=== PATIENT | female | born 1945 | race Caucasian/White ===

== ENCOUNTER 2017-07-17 09:27 | Outpatient (CLI) | payer MEDICARE ==
--- NOTE | 2017-07-20 17:59 | DEXA Report ---
DEXA SCAN: 07/17/2017 COMPARISON: No comparison. INDICATION: Bone mineral density screening. TECHNIQUE: Dual energy x-ray absorptiometry (DXA) was performed on a [employer] system. Regions measured are the AP spine, femoral neck, and, if needed, forearm. COMPARISON: None. In accordance with the International Society for Clinical Densitometry (ISCD) guidelines, data from previous exams may be reanalyzed using current recommendations and techniques. This is done to allow a more accurate basis for comparison with the current study. FINDINGS The data for the lumbar spine is as follows: REGION BMD (g/cm/cm) T-SCORE Z-SCORE L1 1.070 -0.5 0.9 L2 1.151 -0.4 1.0 L3 1.056 -1.2 0.2 L4 0.925 -2.3 -0.8 L1-L4 1.041 -1.2 0.3 NOTE: All evaluable vertebrae are used for classification. The data for the hip is as follows: REGION BMD (g/cm/cm) T-SCORE Z-SCORE Neck 0.891 -1.1 0.5 TOTAL 0.888 -1.0 0.4 NOTE: The femoral neck or total proximal femur, whichever is lowest, is used for classification. Bone mineral density of the spine L1-L4 is 1.041 grams/cm2. T-score minus 1.2. Z-score 0.3. WHO classification osteopenia. Bone mineral density of the femoral neck is 0.891 grams/cm2. T-score minus 1.1. Z-scores 0.5. WHO classification osteopenia. IMPRESSION WHO CLASSIFICATION BASED ON THE INTERNATIONAL REFERENCE STANDARD IS OSTEOPENIA. FRACTURE RISK IS INCREASED. RECOMMENDATION: Patients with diagnosis of osteoporosis or osteopenia should have regular bone mineral density assessment. For those eligible for Medicare, routine testing is allowed once every 2 years. Testing frequency can be increased for patients who have rapidly progressing disease or for those who are receiving medical therapy to restore bone mass. COMMENT World Health Organization (WHO) definitions for osteoporosis and osteopenia: NORMAL BMD: T-score at 1.0 or higher, fracture risk is low. OSTEOPENIA BMD: T-score between 1.0 and -2.5, fracture risk is increased. OSTEOPOROSIS BMD: T-score at 2.5 or lower, fracture risk high. National Osteoporosis Foundation recommends: 1. Obtain adequate dietary calcium (at least 1200 mg per day) and vitamin D (400 -800 international units per day). 2. Participate, as appropriate, in regular weightbearing and muscle- strengthening exercise. 3. Avoid tobacco use and reduce alcohol and caffeine intake. 4. For more detailed information see the website at www.NOF.org. TD: 07/17/2017 10:57 MTDJesenia
== END 2017-07-17 09:28 | disposition home or self-care (01) ==
LOC: DI 09:27
PROVIDERS: ATTEND Nurse Practitioner
DX: Z13.820 Encounter for screening for osteoporosis (principal); M85.80 Other specified disorders of bone density and structure, unspecified site; M81.0 Age-related osteoporosis without current pathological fracture
CPT/HCPCS: 77080

== ENCOUNTER 2017-07-18 09:35 | Outpatient (CLI) | payer MEDICARE ==
--- NOTE | 2017-07-18 13:14 | XRAY Report ---
LUMBAR SPINE: 07/18/2017 COMPARISON: No comparison. INDICATION: Lumbago. TECHNIQUE: Three views. FINDINGS: There is mild disk space narrowing at L1-L2, L2-L3, L3-L4, and L4- L5. There are small anterior osteophytes. Alignment appears normal. No evidence of acute fracture. IMPRESSION: MILD LUMBAR SPONDYLOSIS, DETAILED ABOVE. TD: 07/18/2017 13:13 [facility]
== END 2017-07-18 09:36 | disposition home or self-care (01) ==
LOC: DI.N 09:35
PROVIDERS: ATTEND Nurse Practitioner
DX: M54.5 Low back pain (principal)
CPT/HCPCS: 72100

== ENCOUNTER 2017-07-21 08:00 | Outpatient (CLI) | payer MEDICARE ==
[2017-07-21 13:06] LABS: BASOPHILS # (AUTO) 0.1 10^3/uL (0.0-0.1); BASOPHILS % (AUTO) 1.2 %; EOSINOPHILS # (AUTO) 0.3 10^3/uL (0.0-0.7); EOSINOPHILS % (AUTO) 5.9 %; HGB - HEMOGLOBIN 13.8 g/dL (12.0-16.0); LYMPHOCYTES # (AUTO) 1.9 10^3/uL (1.5-3.5); LYMPHOCYTES % (AUTO) 33.8 %; MEAN CORPUSCULAR HEMOGLOBIN 31.2 pg (27.0-31.0); MEAN CORPUSCULAR HGB CONC 33.9 g/dL (32.0-36.0); MEAN PLATELET VOLUME 8.9 fL (7.9-10.8); MONOCYTES # (AUTO) 0.5 10^3/uL (0.0-1.0); MONOCYTES % (AUTO) 9.5 %; NEUTROPHILS # (AUTO) 2.8 10^3/uL (1.5-6.6); NEUTROPHILS % (AUTO) 49.6 %; PLT - PLATELET COUNT 273 10^3/uL (130-450); RED BLOOD COUNT 4.44 10^6/uL (4.20-5.40); WHITE BLOOD COUNT 5.6 x10^3/uL (4.8-10.8)
[2017-07-21 13:22] LABS: ALBUMIN 3.9 g/dL (3.2-5.5); ALBUMIN/GLOBULIN RATIO 1.3 (1.0-2.2); ALKALINE PHOSPHATASE 79 IU/L (42-121); ALT ALANINE AMINOTRANSFERASE 15 IU/L (10-60); AST ASPARTATE AMINOTRANSFERASE 16 IU/L (10-42); BILIRUBIN,TOTAL 1.3 mg/dL (0.2-1.0); BUN - BLOOD UREA NITROGEN 16 mg/dL (6-20); CALCIUM 9.5 mg/dL (8.5-10.3); CARBON DIOXIDE - CO2 26 mmol/L (21-32); CHLORIDE 104 mmol/L (101-111); CHOL/HDL RATIO 4.4 (<4.4); CHOLESTEROL 262 mg/dL; CREATININE 0.5 mg/dL (0.4-1.0); GFR - MDRD 122 (>89); GLUCOSE 94 mg/dL (70-100); HDL CHOLESTEROL 60 mg/dL; LDL CHOLESTEROL,CALCULATED 189 mg/dL; LDL/HDL RATIO 3.2 (<4.4); SODIUM 137 mmol/L (135-145); TOTAL PROTEIN 6.8 g/dL (6.7-8.2); VLDL CHOLESTEROL 13 mg/dL
[2017-07-21 13:26] LABS: THYROID STIMULATING HORMONE 1.38 uIU/mL (0.34-5.60)
== END 2017-07-21 08:01 | disposition home or self-care (01) ==
LOC: LAB.N 08:00
PROVIDERS: ATTEND Nurse Practitioner
DX: I10 Essential (primary) hypertension (principal); K76.9 Liver disease, unspecified; E27.8 Other specified disorders of adrenal gland; E78.2 Mixed hyperlipidemia; E55.9 Vitamin D deficiency, unspecified
CPT/HCPCS: 36415; 80053; 80061; 82306; 82607; 82746; 83721; 84443; 85025

== ENCOUNTER 2018-08-13 07:56 | Outpatient (CLI) | payer MEDICARE ==
[2018-08-13] MEDS ORDERED: IOVERSOL 320 100 ML VIAL IVP ONE ×2 (08:07→17:07)
--- NOTE | 2018-08-13 12:45 | CT Report ---
Reason: ADRENAL MASS Procedure Date: 08/13/2018 Accession Number: [id number] / [id number] Procedure: CT - ABDOMEN W/WO CPT Code: FULL RESULT: EXAM: CT ABDOMEN WITHOUT AND WITH CONTRAST EXAM DATE: 08/13/2018 08:26 AM. HISTORY: Adrenal mass. COMPARISON: ABDOMEN/PELVIS W/ 09/11/2017 3:40 PM. TECHNIQUE: Routine helical CT imaging was performed through the abdomen before and after administration of IV contrast: 100 mL Optiray 320. Enteric contrast: No. Reconstruction: Coronal and sagittal. In accordance with CT protocol optimization, one or more of the following dose reduction techniques were utilized for this exam: automated exposure control, adjustment of mA and/or KV based on patient size, or use of iterative reconstructive technique. FINDINGS: Lung Bases: Dependent changes. Liver: Liver contains a right lobe hypodensity which is too small to characterize. Gallbladder/Bile Ducts: Status post cholecystectomy. Spleen: Normal. Pancreas: Normal. No masses or ductal obstruction. Adrenal Glands: The known left adrenal myelolipoma measures 4.1 x 3.6 cm on today's exam as seen on image 38 series 5. Right adrenal gland is diminutive in size, stable. Kidneys: Normal. No masses or hydronephrosis. Peritoneal Cavity/Bowel: Normal. No free fluid, free air or adenopathy. No masses or acute inflammatory process. Vasculature: No aneurysms or other significant abnormality. Bones: No significant abnormality. Other: None. IMPRESSION: Left adrenal myelolipoma requires no further imaging follow-up as per ACR white paper. RADIA
== END 2018-08-13 07:57 | disposition home or self-care (01) ==
LOC: DI 07:56
PROVIDERS: ATTEND Nurse Practitioner
DX: D17.79 Benign lipomatous neoplasm of other sites (principal)
CPT/HCPCS: 74170; Q9967

== ENCOUNTER 2018-10-29 07:28 | Outpatient (CLI) | payer MEDICARE ==
[2018-10-29 13:40] LABS: BASOPHILS # (AUTO) 0.1 10^3/uL (0.0-0.1); EOSINOPHILS # (AUTO) 0.4 10^3/uL (0.0-0.7); EOSINOPHILS % (AUTO) 6.7 %; HGB - HEMOGLOBIN 14.3 g/dL (12.0-16.0); LYMPHOCYTES % (AUTO) 34.8 %; MEAN CORPUSCULAR HEMOGLOBIN 30.5 pg (27.0-31.0); MEAN CORPUSCULAR HGB CONC 31.8 g/dL (32.0-36.0); MEAN CORPUSCULAR VOLUME 95.7 fL (81.0-99.0); MEAN PLATELET VOLUME 10.8 fL (7.9-10.8); MONOCYTES # (AUTO) 0.5 10^3/uL (0.0-1.0); MONOCYTES % (AUTO) 9.2 %; NEUTROPHILS # (AUTO) 2.8 10^3/uL (1.5-6.6); NEUTROPHILS % (AUTO) 48.1 %; PLT - PLATELET COUNT 299 10^3/uL (130-450); RED BLOOD COUNT 4.69 10^6/uL (4.20-5.40); RED CELL DISTRIBUTION WIDTH 12.8 % (12.0-15.0); WHITE BLOOD COUNT 5.9 x10^3/uL (4.8-10.8)
[2018-10-29 14:08] LABS: ALBUMIN 3.8 g/dL (3.2-5.5); ALBUMIN/GLOBULIN RATIO 1.4 (1.0-2.2); ALKALINE PHOSPHATASE 71 IU/L (42-121); ALT ALANINE AMINOTRANSFERASE 15 IU/L (10-60); AST ASPARTATE AMINOTRANSFERASE 15 IU/L (10-42); BUN - BLOOD UREA NITROGEN 13 mg/dL (6-20); CALCIUM 9.4 mg/dL (8.5-10.3); CARBON DIOXIDE - CO2 27 mmol/L (21-32); CHLORIDE 105 mmol/L (101-111); CHOL/HDL RATIO 4.3 (<4.4); CHOLESTEROL 256 mg/dL; CREATININE 0.6 mg/dL (0.4-1.0); GFR - MDRD 98 (>89); GLUCOSE 94 mg/dL (70-100); HDL CHOLESTEROL 59 mg/dL; LDL CHOLESTEROL,CALCULATED 177 mg/dL; SODIUM 142 mmol/L (135-145); TOTAL PROTEIN 6.5 g/dL (6.7-8.2); VLDL CHOLESTEROL 20 mg/dL
== END 2018-10-29 23:59 ==
LOC: LAB.N 07:28
PROVIDERS: ATTEND Nurse Practitioner
DX: I10 Essential (primary) hypertension (principal); E78.2 Mixed hyperlipidemia; E27.8 Other specified disorders of adrenal gland; M85.89 Other specified disorders of bone density and structure, multiple sites; M19.90 Unspecified osteoarthritis, unspecified site
CPT/HCPCS: 36415; 80053; 80061; 83721; 84443; 85025

== ENCOUNTER 2019-07-08 09:38 | Outpatient (CLI) | payer MEDICARE ==
[2019-07-08] MEDS ORDERED: IOVERSOL 320 50 ML VIAL ONE (10:06)
[2019-07-08] MEDS ORDERED: IOVERSOL 320 100 ML VIAL IVP ONE ×2 (10:06→14:34)
[2019-07-08] MEDS ORDERED: IOVERSOL 320 50 ML VIAL PO ONE (14:34)
--- NOTE | 2019-07-09 13:25 | CT Report ---
Reason: ADRENAL MASS Procedure Date: 07/08/2019 Accession Number: [id number] / [id number] Procedure: CT - CHEST W CPT Code: Final Report FULL RESULT: EXAM: CT CHEST EXAM DATE: 07/08/2019 11:23 AM. CLINICAL HISTORY: Adrenal mass. COMPARISONS: ABDOMEN W/WO 08/13/2018 8:15 AM ABDOMEN/PELVIS W/ 09/11/2017 3:40 PM. TECHNIQUE: Routine helical CT imaging was performed through the chest. IV contrast: 100 mL Optiray 320. Reconstructions: Coronal and sagittal. In accordance with CT protocol optimization, one or more of the following dose reduction techniques were utilized for this exam: automated exposure control, adjustment of mA and/or KV based on patient size, or use of iterative reconstructive technique. FINDINGS: Lungs/Pleura: 1.3 x 1.3 cm solid medial left upper lobe lung nodule, series 3 image 95. No calcifications or macroscopic fat. 5 mm posterior medial left lower lobe lung nodule on image 176. Mild bilateral lower lobe bronchiectasis. Dependent bilateral lower lobe atelectasis. Mild right middle lobe and right lower lobe diskoid atelectasis and potential scarring. Similar findings in left lower lobe near the diaphragm. Mediastinum: Mild coronary arterial calcification.. No adenopathy or masses. Mild cardiomegaly. Bones: Thoracic spine degenerative changes. Visualized Abdomen: Fat-containing left adrenal lesion consistent with a benign myelolipoma measuring 3.8 x 3.8 cm previously measured 3.9 x 4.[address] 09/11/2017. No significant change. Normal right adrenal gland. Prior cholecystectomy. Posterior splenule. Small hiatal hernia. Other: None. IMPRESSION: 1. Stable benign left adrenal myelolipoma. 2. A 1.3 cm solid medial left upper lobe lung nodule. Consider follow-up chest CT in 3 months versus PET-CT or tissue sampling to further characterize. 3. A 5 mm posterior medial left lower lobe lung nodule is also noted. Demetrius Morales et al. Guidelines for Management of Incidental Pulmonary Nodules Detected on CT Images: From the Fleischner Society 2017. Radiology (2017). RADIA The call report notification system was initiated by Dr. Macario Blair at 12:45 PM on 07/09/2019. The above call report findings were discussed with Nurse Cha by Dr. Macario Blair at 01:23 PM on 07/09/2019.
--- NOTE | 2019-07-09 13:56 | CT Report ---
Reason: ADRENAL MASS Procedure Date: 07/08/2019 Accession Number: [id number] / [id number] Procedure: CT - Abdomen/Pelvis W CPT Code: Final Report FULL RESULT: EXAM: CT ABDOMEN AND PELVIS EXAM DATE: 07/08/2019 11:23 AM. CLINICAL HISTORY: Adrenal mass. COMPARISONS: ABDOMEN/PELVIS W/ 09/11/2017 3:40 PM. TECHNIQUE: Routine helical CT imaging was performed through the abdomen and pelvis. IV contrast: 100 mL Optiray 320. Enteric contrast: Yes. Reconstructions: Coronal and sagittal. In accordance with CT protocol optimization, one or more of the following dose reduction techniques were utilized for this exam: automated exposure control, adjustment of mA and/or KV based on patient size, or use of iterative reconstructive technique. FINDINGS: Lung Bases: Small hiatal hernia. Liver: Several small liver cysts appear similar to 09/11/2017 CT. No suspicious mass. Patent portal vein. Gallbladder/Bile Ducts: Prior cholecystectomy. Spleen: Normal. Pancreas: Normal. Adrenal Glands: 3.9 x 3.7 cm left adrenal myelolipoma with microscopic fat, stable compared to abdominal CT 09/11/2017. Normal right adrenal gland. Kidneys: Normal. No masses or hydronephrosis. Peritoneal Cavity/Bowel: Colonic diverticulosis. No acute inflammation. No dilated bowel. Pelvic Organs: Normal. The bladder and visualized pelvic organs are within normal limits. Vasculature: Moderate atherosclerotic calcifications. No abdominal aortic aneurysm. Bones: Multilevel lumbar spine degenerative changes. Mild scoliosis. Other: None. IMPRESSION: 1. Stable 3.9 cm benign left adrenal myelolipoma. 2. Diverticulosis. No diverticulitis. RADIA
== END 2019-07-08 09:39 | disposition home or self-care (01) ==
LOC: MAC.MOP 09:38
PROVIDERS: ATTEND Internal Medicine
DX: D17.79 Benign lipomatous neoplasm of other sites (principal); R91.8 Other nonspecific abnormal finding of lung field; K57.30 Diverticulosis of large intestine without perforation or abscess without bleeding
CPT/HCPCS: 71260; 74177; Q9967

== ENCOUNTER 2019-09-01 10:36 | Outpatient (CLI) | payer MEDICARE ==
[2019-09-01] MEDS ORDERED: IOVERSOL 320 100 ML VIAL IVP ONE (11:46)
== END 2019-09-01 10:37 | disposition home or self-care (01) ==
LOC: DI 10:36
PROVIDERS: ATTEND Internal Medicine
DX: Z53.9 Procedure and treatment not carried out, unspecified reason (principal)

== ENCOUNTER 2019-09-03 15:25 | Outpatient (CLI) | payer MEDICARE | END 2019-09-03 15:26 | disposition home or self-care (01) | LOC: DI 15:25 | PROVIDERS: ATTEND Nurse Practitioner | DX: Z12.31 Encounter for screening mammogram for malignant neoplasm of breast (principal) | CPT/HCPCS: 77063; 77067 ==

== ENCOUNTER 2019-09-20 12:52 | Outpatient (CLI) | payer MEDICARE ==
[2019-09-20] MEDS ORDERED: IOVERSOL 320 100 ML VIAL IVP ONE ×2 (13:00→13:15)
--- NOTE | 2019-09-20 17:45 | CT Report ---
PROCEDURE: CHEST W INDICATIONS: ABN FINDINGS ON LUNG, ADRENAL GLAND CONTRAST: IV CONTRAST: Optiray 320 ml: 100 PO CONTRAST: *NO PO CONTRAST TECHNIQUE: After the administration of intravenous contrast, 5 mm thick sections acquired from the pulmonary api so to the posterior costophrenic angles. 7 mm thick coronal MIP reformats were acquired. For radia tion dose reduction, the following was used: automated exposure control, adjustment of mA and/or kV according to patient size. COMPARISON: CT chest 07/08/2019, CT abdomen pelvis 07/08/2019, CT abdomen 08/13/2018. FINDINGS: Image quality: Excellent. Lungs and pleura: Medially within the left upper lobe, there is an oval circumscribed nodule measuri ng up to 1.3 cm which appears stable in size compared to the recent prior chest CT. Medially within t he left lower lobe, a small pulmonary nodule measuring up to 0.5 cmThere which appears progressively increased in size compared to the prior abdominal CT of 09/11/2017 on which it measured approximately 0 .2 cm. There is mild focal thickening along the right minor fissure which appears similar to the prio r chest CT. Linear scarring is redemonstrated within the lung bases bilaterally. Bilateral atelectasi s is also noted. No new suspicious mass lesions. No acute consolidation. No pleural effusions or pneu mothorax. Central and peripheral airways are patent and normal in caliber. Mediastinum: Heart size is normal. No pericardial effusion. No mediastinal or hilar adenopathy by size criteria. Thoracic aorta and central pulmonary arteries are normal in size. Esophagus is favian l in caliber. There is a small to moderate hiatal hernia. Bones and chest wall: No suspicious bony lesions. No vertebral body compression fractures. No axil erik or supraclavicular adenopathy by size criteria. There is a calcified nodule within the left thyr oid lobe redemonstrated, measuring up to 0.6 cm. Abdomen: Visualized upper abdomen redemonstrates a heterogeneous left adrenal mass measuring up to 3 .6 x 3.6 cm in transverse dimension with internal macroscopic fat. The findings are consistent with a myelolipoma and appears stable in size compared to the prior studies. The gallbladder is surgically absent. IMPRESSION: 1. Stable medial left upper lobe pulmonary nodule measuring up to 1.3 cm. Recommend continued follow- up in 6 months to demonstrate stability. 2. Small 0.5 cm medial left lower lobe nodule demonstrates progressive increase in size compared to t he prior studies. The finding is nonspecific but suspicious for a neoplasm. Recommend attention on fo llow-up in 6 months. 3. Small calcified left thyroid nodule. Further evaluation may be obtained with ultrasound if indicat ed. 4. Stable left adrenal myelolipoma. Reviewed by: Kartik Bentley MD on 09/20/2019 5:43 PM PDT Approved by: Kartik Bentley MD on 09/20/2019 5:43 PM PDT Station ID: [id number]
== END 2019-09-20 12:53 | disposition home or self-care (01) ==
LOC: DI 12:52
PROVIDERS: ATTEND Internal Medicine Hematology & Oncology
DX: R91.8 Other nonspecific abnormal finding of lung field (principal); E27.8 Other specified disorders of adrenal gland; D17.5 Benign lipomatous neoplasm of intra-abdominal organs; E04.1 Nontoxic single thyroid nodule
CPT/HCPCS: 71260; Q9967

== ENCOUNTER 2019-10-05 08:42 | Outpatient (CLI) | payer MEDICARE ==
--- NOTE | 2019-10-06 11:33 | Mammography Report ---
UNILATERAL RIGHT DIGITAL DIAGNOSTIC MAMMOGRAM 3D/2D: 10/05/2019 CLINICAL: Patient returns today to evaluate a focal asymmetry in the right breast. Comparison is made to exams dated: 09/03/2019 mammogram - [facility], 07/26/2017 [facility], 02/13/2015 mammogram, 12/16/2013 mammogram, 12/11/2012 mammogram - [facility], and 0 mammogram - [facility]. There are scattered fibroglandular elements in right joseph ast. There is a 1 cm mass with a spiculated margin and dystrophic calcifications in the right breast at 11 o'clock anterior depth. This is seen in additional views. No other significant masses or calcifications are seen in the breast. IMPRESSION: INCOMPLETE: NEEDS ADDITIONAL IMAGING EVALUATION The 1 cm mass in the right breast is indeterminate. An ultrasound is recommended. This was performe d immediately following this exam. This exam was interpreted at Station ID: [id number]. NOTE: For mammograms, a report in lay terms will be sent to the patient. Approximately 15% of breast malignancies will not be visualized mammographically. In the management of a palpable breast mass, a negative mammogram must not discourage biopsy of a clinically suspicious lesion. Electronically Signed By: Mirta armendariz/:10/05/2019 09:26:54 ACR BI-RADS Category 0: Incomplete 3340F PARENCHYMAL PATTERN: (A) - The breast(s) demonstrate(s) scattered fibroglandular densities. BI-RADS CATEGORY: (0) - 0 Ultrasound [id number] Immediate follow-up LATERALITY: (B)
--- NOTE | 2019-10-06 11:33 | Ultrasound Report ---
LIMITED ULTRASOUND OF RIGHT BREAST AND AXILLA: 10/05/2019 CLINICAL: Patient returns for additional imaging over a suspected mass in the right breast. Comparison is made to exams dated: 10/05/2019 mammogram, 09/03/2019 mammogram - [facility], 07/26/2017 mammogram, 02/13/2015 mammogram, 12/16/2013 mammogram, and 12/11/2012 mammogram - [facility]. Color flow and real-time ultrasound of the right breast 10 o'clock, and axilla regions were performed . Palm scale images of the real-time examination were reviewed. There is a 0.8 cm x 0.8 cm x 0.7 cm irregular mass with an angular margin in the right breast at 10 o 'clock middle depth 3 cm from the nipple. This irregular mass is hypoechoic with an echogenic bounda ry. This correlates with mammography findings. Color flow imaging demonstrates that there is no inc rease in vascularity. No significant abnormalities were seen sonographically in the right axilla. IMPRESSION: SUSPICIOUS OF MALIGNANCY The 0.8 cm x 0.8 cm x 0.7 cm irregular mass in the right breast is at a moderate suspicion for malign celsa. An ultrasound guided biopsy is recommended. Findings and recommendations were discussed with the patient by Dr. Rico Saini in person at time of exam. This exam was interpreted at Station ID: [id number]. Electronically Signed By: Mirta armendariz/:10/05/2019 10:29:42 Ultrasound BI-RADS: 4b Moderate suspicion of malignancy BI-RADS CATEGORY: (4b) - Mod Susp None [id number] Immediate follow-up LATERALITY: ()
== END 2019-10-05 08:43 | disposition home or self-care (01) ==
LOC: DI 08:42
PROVIDERS: ATTEND Nurse Practitioner
DX: N63.11 Unspecified lump in the right breast, upper outer quadrant (principal)
CPT/HCPCS: 76642

== ENCOUNTER 2019-10-27 12:51 | Outpatient (CLI) | payer MEDICARE ==
[~2019-10-27 12:51] MED LIST: BUFFERED LIDOCAINE 10 ML SYRINGE ONE
[2019-10-27] MEDS ORDERED: BUPIVACAINE 0.5%-EPI 1:200000 PF 30 ML VIAL SUBQ ONE (16:51)
[2019-10-27] MEDS ORDERED: BUFFERED LIDOCAINE 10 ML SYRINGE IU ONE (16:51)
--- NOTE | 2019-10-28 09:45 | Mammography Report ---
UNILATERAL RIGHT DIGITAL DIAGNOSTIC MAMMOGRAM 3D/2D: 10/27/2019 CLINICAL: Post right breast ultrasound biopsy, clip placement imaging. There are scattered fibroglandular elements in right breast. There is a marker clip in the appropriate position in the right breast at 10 o'clock anterior depth. This marker clip placement is at the biopsy site. This correlates with ultrasound findings. IMPRESSION: POST PROCEDURE MAMMOGRAM FOR MARKER PLACEMENT There was a successful marker clip placement in the right breast anterior depth. This exam was interpreted at Station ID: [id number]. NOTE: For mammograms, a report in lay terms will be sent to the patient. Approximately 15% of breast malignancies will not be visualized mammographically. In the management of a palpable breast mass, a negative mammogram must not discourage biopsy of a clinically suspicious lesion. Electronically Signed By: Jose Church M.D. sdh/:10/28/2019 09:03:56 ACR BI-RADS Category Post-procedure mammogram for marker placement PARENCHYMAL PATTERN: (A) - The breast(s) demonstrate(s) scattered fibroglandular densities. BI-RADS CATEGORY: () - Unspecified - other recall n/a LATERALITY: (B)
--- NOTE | 2019-10-30 07:51 | Ultrasound Report ---
ULTRASOUND GUIDED BIOPSY RIGHT BREAST WITH MARKING DEVICE INSERTED AND POST DIGITAL MAMMOGRAPHIC AND ULTRASOUND IMAGIN10/27/2019 CLINICAL: Right breast mass. PATIENT CONSENT: Risks (minor bleeding, infection, vasovagal reaction and repeat procedure), benefits and alternatives were explained to the patient and written informed consent was obtained. Correlation is made to exams dated: 10/05/2019 ultrasound, 10/05/2019 mammogram, 09/03/2019 mammogram - [facility], 07/26/2017 mammogram, 02/13/2015 mammogram, and 12/16/2013 mammogram - [facility]. An ultrasound guided biopsy using real-time ultrasound was performed for the concerning 0.7 cm x 0.6 cm x 0.7 cm circumscribed round solid mass located in the right breast at 10 o'clock anterior depth. This was described on the previous ultrasound report. The skin was prepped in the usual manner. Lo adam anesthetic was administered to the access site. A skin evelyn was made in the breast. The abnorma lity was approached from the medial aspect. A 10 gauge biopsy needle was placed adjacent to the abno rmality under ultrasound guidance. Once the needle was documented to be in the correct location, fou r specimens were obtained using a BARD biopsy device. The patient received additional local anesthet ic during the procedure. A Celero clip was inserted into the biopsy cavity. A skin closure strip an d a sterile dressing were applied to the access site. Post procedure digital mammographic and ultras ound imaging demonstrates the location device at the targeted area and partial removal of the abnorma lity. The specimens were sent to the laboratory for pathological analysis. IMPRESSION: ULTRASOUND GUIDED BIOPSY MALIGNANT Ultrasound guided biopsy of the 0.7 cm x 0.6 cm x 0.7 cm solid mass in the right breast at 10 o'clock anterior depth was successful. Pathology indicates malignant infiltrating ductal carcinoma. Pathol ogy results are concordant with imaging findings. Surgical/ Oncological consultation is recommended. Discussed with Kenyatta PALACIOS, in the office of Adrianne Mixon NP on 10/29/19. This exam was interpreted at Station ID: [id number]. Jose Beckford M.D. [facility],krg/:10/29/2019 12:46:16 BI-RADS CATEGORY: () - Unspecified - other recall n/a LATERALITY: (B)
== END 2019-10-27 12:52 | disposition home or self-care (01) ==
LOC: DI 12:51
PROVIDERS: ATTEND Nurse Practitioner
DX: C50.411 Malignant neoplasm of upper-outer quadrant of right female breast (principal); Z17.0 Estrogen receptor positive status [ER+]
CPT/HCPCS: 19083

== ENCOUNTER 2019-11-18 14:00 | Outpatient (CLI) | payer MEDICARE | END 2019-11-18 23:59 | disposition home or self-care (01) | LOC: LAB 14:00 | PROVIDERS: ATTEND Surgery | DX: C50.919 Malignant neoplasm of unspecified site of unspecified female breast (principal); N63.11 Unspecified lump in the right breast, upper outer quadrant; N63.15 Unspecified lump in the right breast, overlapping quadrants; R92.8 Other abnormal and inconclusive findings on diagnostic imaging of breast | CPT/HCPCS: 36415; 82565 ==

== ENCOUNTER 2019-11-22 07:40 | Outpatient (CLI) | payer MEDICARE ==
[2019-11-18 14:13] LABS: CREATININE 0.6 mg/dL (0.4-1.0)
[~2019-11-22 07:40] MED LIST changes: -BUFFERED LIDOCAINE 10 ML SYRINGE ONE; +GADOBUTROL 10 MMOL/10 ML VIAL ONE
[2019-11-22] MEDS ORDERED: GADOBUTROL 10 MMOL/10 ML VIAL ONE (08:15)
[2019-11-22] MEDS: GADOBUTROL 10 MMOL/10 ML VIAL IVP ONE ×3 (09:24→09:27)
--- NOTE | 2019-11-25 05:46 | MRI Report ---
BREAST MRI OF BOTH BREASTS: 11/22/2019 CLINICAL: Post right breast ultrasound biopsy clip placement imaging. Additional evaluation requested from prior study. The patient was placed prone in a dedicated breast imaging coil. Precontrast axial STIR and 3D FLASH without fat saturation sequences were obtained. Both before and after bolus injection of 8 mL intra venous gadolinium contrast, sequential 1-minute axial 3D FLASH with fat saturation sequences for 3 ti me points, with subtraction images and maximum intensity projections (MIP's) generated. Delayed sagi ttal FLASH images with fat saturation were also obtained. Computer-aided detection, including computer algorithm analysis of MRI image data for lesion detectio n and characterization, pharmacokinetic analysis, with further physician review for interpretation, w as performed. Comparison is made to exams dated: 10/27/2019 mammogram, 10/27/2019 ultrasound biopsy, 10/05/2019 ultra sound, 10/05/2019 mammogram, 09/03/2019 mammogram - [facility], and 07/26/2017 mammogr [facility]. FINDINGS: There is mild background parenchymal enhancement. There is scattered fibroglandular tissue in the bilateral breast. Right breast: In the upper, outer quadrant of the right breast anterior-middle depth, there is an ir regular enhancing mass measuring 1.2 cm x 0.8 cm in maximum transverse dimension. This contains a sm all focus of susceptibility artifact compatible with biopsy marker from recent biopsy. This correlat es with biopsy-proven malignancy. There is delayed phase washout enhancement kinetics. This mass is approximately 3.5 cm from the nipple. There is an irregular 0.7 cm enhancing mass noted approximatel y 1 cm anterior and slightly superior to the biopsied index mass. There is associated delayed phase w ashout enhancement kinetics. This likely represents a small satellite lesion. There is an additiona l irregular enhancing mass measuring 1.0 x 1.3 cm in maximal transverse dimension within the medial r ight breast at approximately the 2:00 a.m.-3:00 position. There is delayed phase washout enhancement kinetics. This irregular mass is approximately 3.9 cm from the index mass. This mass is approximate ly 3.4 cm from the nipple. No right axillary or internal mammary chain adenopathy. No skin or nippl e abnormalities visualized. Left breast: No suspicious mass, architectural distortion, or non-mass enhancement. No axillary or internal mammary chain adenopathy. No skin or nipple abnormalities visualized. Miscellaneous: Limited visualization of the upper abdomen and anterior chest appear unremarkable. IMPRESSION: KNOWN BIOPSY PROVEN MALIGNANCY 1. The 1.2 x 0.8 cm irregular mass in the upper outer quadrant of the right breast at approximately t he 10:00 axis anterior-middle depth measures slightly larger than sonographic measurements (0.7 cm x 0.8 cm) and may be related to post biopsy changes. This correlates with the biopsy proven malignancy . There is a likely 0.7 cm satellite lesion noted a short distance (1.0 cm) anterior and superior to the index mass. 2. There is an additional 1.0 x 1.3 cm irregular enhancing mass in the medial right breast at approxi mately the 2-3:00 axis in the anterior-middle depth which is suspicious for multicentric disease. Co nsider second-look right breast ultrasound for further evaluation if this would affect surgical/clini adam management. 3. No MRI evidence for right axillary or internal mammary chain adenopathy. 4. No MRI evidence for malignancy in the left breast. BIRADS 6, biopsy-proven malignancy. COMMENT: The imaging literature indicates that a negative contrast breast MRI examination has a high sensitivity and a moderate specificity for detecting and excluding invasive carcinomas to a detection threshold of 3-5 mm; nonetheless, appropriate clinical and mammographic follow-up are recommended. MRI is not sensitive for detecting DCIS (ductal carcinoma in situ) and may not detect large invasive neoplasms that show only minimal enhancement such as mucinous carcinoma. If there are suspicious adam cifications or clinically worrisome palpable masses, then biopsy should still be considered. Invasiv e neoplasms can be hidden by co-existent and benign enhancement caused by mastitis, hormone therapy e ffects, radiation therapy, , and recent biopsy or surgery. False positive examinations can occur in a number of circumstances, including breasts that have recently been subject to invasive pro cedures and those that contain atypical ductal hyperplasia, hormonally stimulated glandular tissue, f at necrosis, or radial scars. This exam was interpreted at Station ID: [id number]. Electronically Signed By: Bonilla Powers M.D. aty/:11/24/2019 18:52:47 ACR BI-RADS Category 6: Known biopsy proven malignancy 3346F BI-RADS CATEGORY: (6) - 6 Unspecified - other recall n/a LATERALITY: (B)
== END 2019-11-22 07:41 | disposition home or self-care (01) ==
LOC: DI 07:40
PROVIDERS: ATTEND Surgery
DX: C50.919 Malignant neoplasm of unspecified site of unspecified female breast (principal); N63.11 Unspecified lump in the right breast, upper outer quadrant; N63.15 Unspecified lump in the right breast, overlapping quadrants; R92.8 Other abnormal and inconclusive findings on diagnostic imaging of breast
CPT/HCPCS: 36415; 77049; 82565; A9585

== ENCOUNTER 2019-11-26 14:48 | Outpatient (CLI) | payer MEDICARE | END 2019-11-26 14:49 | disposition home or self-care (01) | LOC: LAB 14:48 | PROVIDERS: ATTEND Surgery | DX: Z01.812 Encounter for preprocedural laboratory examination (principal); Z20.828 Contact with and (suspected) exposure to other viral communicable diseases; C50.919 Malignant neoplasm of unspecified site of unspecified female breast ==

== ENCOUNTER 2019-11-29 07:47 | Day surgery (SDC) | payer MEDICARE ==
[2019-11-29] MEDS ORDERED: CEFAZOLIN SODIUM IN 0.9 % NACL 2 GM/100 ML BAG IV ONE (09:16)
[2019-11-29] MEDS ORDERED: BUPIVACAINE 0.5% PF 30 ML VIAL ONE (10:59)
[2019-11-29] MEDS ORDERED: LIDOCAINE 1%-EPI 1:100000 20 ML MDV ONE (10:59)
[2019-11-29] MEDS ORDERED: LACTATED RINGERS 1,000 ML IV ONE ×3 (11:00→14:08)
--- NOTE | 2019-11-29 11:16 | ANESTHESIA ---
Pre-Anesthesia VS, & Labs - Diagnosis right multifocal breast cancer - Procedure right skin sparing mastectomy with sentinel lymph node biopsy Vital Signs: Temp Pulse Resp BP Pulse Ox 36.1 C L 76 16 184/91 H 76 L 11/29/19 08:30 11/29/19 08:30 11/29/19 08:30 11/29/19 08:30 11/29/19 08:30 Height: 5 ft 1 in Weight (kg): 80 kg Body Mass Index: 33.3 BMI Classification: Obese - NPO >8 hours - Is Patient ?: No Home Medications and Allergies Home Medications: Ambulatory Orders Calcium Carbonate/Vitamin D3 [Calcium 500 mg-Vit D3 600 Unit] 1 each PO DAILY 11/19/19 Cholecalciferol [Vitamin D3] 1,000 unit PO DAILY 08/13/17 Krill/[place]-3/Dha/Epa/Lipids [Krill Oil 350 mg Softgel] 1 cap PO DAILY 08/13/17 Metoprolol Succinate 25 mg PO DAILY 08/13/17 Multivitamin/Iron/Folic Acid [Centrum Adults Tablet] 1 tab PO DAILY 08/13/17 Niacin 500 mg PO DAILY 08/13/17 Red Yeast Rice 1,200 cap PO BID 08/13/17 Ubidecarenone [Co Q-10] 1 cap PO DAILY 08/13/17 Vit A/Vit C/Vit E/Zinc/Copper [Preservision Areds Softgel] 2 cap PO DAILY 08/13/17 Calcium Carbonate/Vitamin D3 [Calcium 500 mg-Vit D3 600 Unit] 1 each PO DAILY 11/19/19 Allergies/Adverse Reactions: Allergies Allergy/AdvReac Type Severity Reaction Status Date / Time amoxicillin Allergy Rash Verified 11/19/19 14:39 Ppcawne-Wzz-Oxi Reductase AdvReac history of Verified 11/19/19 14:29 Inhibitor hepatitis Anes History & Medical History - Anesthetic History Anesthesia Complications: reports: No previous complications - Medical History Cardiovascular: reports: Hypertension Pulmonary: reports: Asthma (well controlled) Gastrointestinal: reports: Hepatitis (Acute episode, resolved. 03/2016) Urinary: reports: Incontinence, Other (Left adrenal tumor.) Neuro: reports: None Musculoskeletal: reports: Osteoarthritis Endocrine/Autoimmune: reports: None Blood Disorders: reports: None Skin: reports: None Smoking Status: Never smoker Psychosocial: reports: Depression (SAD), Cannabis (CBD PRN) History of Cancer?: Yes (Breast cancer) - Surgical History General: Cholecystectomy Eyes Ears Nose Throat (EENT): Other Urologic:  Orthopedic: Knee replacement, Rotator cuff repair Exam General: Alert, Oriented x3, Cooperative, No acute distress Dental: WNL Mouth Openin Fingerbreadth Neck Mobility: Normal Mallampati classification: II Thyromental Distance: 4-6 cm (2 FB) Respiratory: Lungs clear, Normal breath sounds, No respiratory distress, No accessory muscle use Cardiovascular: Regular rate, Normal S1, Normal S2, No murmurs Mental/Cognitive Status: Alert/Oriented X3, Normal for patient Plan Anesthesia Type: General Consent for Procedure(s) Verified and Reviewed: Yes Code Status: Attempt Resuscitation ASA classification: 2-Mild systemic disease Is this case an emergency?: No
[2019-11-29] MEDS ORDERED: NALOXONE 0.4 MG/ML VIAL IVP PRN (12:00)
[2019-11-29] MEDS ORDERED: ATROPINE ABBOJECT 1 MG/10 ML SYRINGE IVP PRN (12:00)
[2019-11-29] MEDS ORDERED: fentaNYL 100 MCG/2 ML VIAL IVP PRN (12:00)
[2019-11-29] MEDS ORDERED: LACTATED RINGERS 1,000 ML IV SCH (12:00)
[2019-11-29] MEDS ORDERED: HYDROmorphone 0.5 MG/0.5 ML SYRINGE IVP PRN (12:00)
[2019-11-29] MEDS ORDERED: MORPHINE 2 MG/ML CARPUJECT IVP PRN (12:00)
[2019-11-29] MEDS ORDERED: ONDANSETRON 4 MG/2 ML VIAL IVP PRN ×2 (12:00→14:04)
[2019-11-29] MEDS ORDERED: PROPOFOL 200 MG/20 ML VIAL IVP ONE (12:22)
[2019-11-29] MEDS ORDERED: ONDANSETRON 4 MG/2 ML VIAL IVP ONE (12:22)
[2019-11-29] MEDS ORDERED: DEXAMETHASONE 4 MG/ML VIAL IVP ONE (12:22)
[2019-11-29] MEDS ORDERED: LIDOCAINE-MPF 2% 5 ML VIAL IM ONE (12:22)
[2019-11-29] MEDS ORDERED: MIDAZOLAM 2 MG/2 ML VIAL IVP ONE (12:22)
[2019-11-29] MEDS ORDERED: fentaNYL 100 MCG/2 ML VIAL IVP ONE (12:22)
--- NOTE | 2019-11-29 12:35 | Nuclear Medicine Report ---
PROCEDURE: Lymph Node Scintigraphy INDICATIONS: RT INFILTRATING DUCTAL CA RADIOPHARMACEUTICAL: 0.526 mCi Millipore filtered Tc-99m sulfur colloid. TECHNIQUE: The area around the nipple was prepped and draped in a sterile fashion. Tc-99m sulfur colloid was in jected intra-dermally in the outer edge of the areola in the right breast. Images were obtained subs equently. A body contour outline was obtained. FINDINGS: There is/are 3 lymph node(s) in the ipsilateral axilla, which is marked on the skin and the images fo r referring physician. IMPRESSION: Administration of radiotracer into the right breast periareolar region for intra-operati ve sentinel lymph node localization. Reviewed by: Shani Kiran MD, PhD on 11/29/2019 12:33 PM PDT Approved by: Shani Kiran MD, PhD on 11/29/2019 12:33 PM PDT Station ID: [id number]
[2019-11-29] MEDS ORDERED: BUPIVACAINE 0.5% PF 30 ML VIAL SUBQ ONE ×2 (13:13)
[2019-11-29] MEDS ORDERED: LIDOCAINE 1%-EPI 1:100000 20 ML MDV SUBQ ONE ×2 (13:13)
--- NOTE | 2019-11-29 13:57 | OPERATIVE REPORT ---
Operative Report - General Procedure Date: 11/29/19 Planned Procedure: Right skin sparing mastectomy and sentinel node biopsy Pre-Op Diagnosis: Multifocal right breast cancer Procedure Performed: Right skin sparing mastectomy and sentinel node biopsy Post Op Diagnosis: Same - Procedure Note Primary Surgeon: Phuc Anesthesia Provider: KESHA Arellano Pathology: 1. Right breast marked with short stitch superior and long stitch lateral 2. Right level 2 sentinel node with 10 count of 4838, background of 6, room background of 0 Estimated Blood Loss (mL): 25 Drain/Tube Type: Ed drain (19 Tajik Ed drain in the inframammary pocket) Indications: Multifocal right breast cancer Findings: A single sentinel node Complications: None apparent - Other Other Information/Narrative: After obtaining informed consent, the patient is brought to the operating room and placed in supine position on the operating table. Following successful induction of general anesthesia, appropriate padding of all bony prominences, and placement of appropriate monitors, the right chest was prepped and draped in the standard surgical fashion. A timeout was held per scope protocol. All elements of the surgical safety checklist were followed before, during, and after the procedure. We began the procedure with a right axillary sentinel node biopsy. The patient had been previously mapped in nuclear medicine and it was clear that there was a single hot node in the right axilla. Using the neoprobe, the axilla was mapped and the area of greatest uptake was identified just beneath the pectoralis minor muscle at approximately level 2.An incision was created in the axilla following infiltration with local anesthetic. This was carried down through the skin and subcutaneous tissue. TheSentinel node was again carefully identified both visually and with the neoprobe. regular tissue was opened at the edge of the pectoralis minor muscle. The the node was gently grasped. The incoming and outgoing lymphatics and vasculature were both addressed with hemoclips prior to division. The 10-second count of this node was 4838. The background in the axilla was 6. No other significant uptake was appreciated. Background in the room was 0. The right axilla was checked for hemostasis. It was infiltrated with additional local anesthetic. It was then closed in 2 layers with Vicryl and Monocryl suture. We continued the procedure by addressing the right breast. An elliptical incision was fashioned to include the nipple areolar complex. The patient requested skin sparing procedure as she does desire reconstruction. For this reason the incision was fashioned around the nipple. It was carried sharply through the skin and subcutaneous tissue. Using traction and countertraction, planes were developed superiorly to the level of the clavicle, medially to the sternal border, inferiorly to the inframammary fold. These planes all the breast tissue from the overlying dermis.Brayan's ligaments were divided using cautery.We then addressed the lateral region of the breast by the superior portion of the breast tissue from the pectoralis muscle superiorly, we content are continued our dissection laterally to the latissimus muscle and then connected the 2 areas of dissection laterally and inferiorly.The wound was checked for hemostasis.We then removed the breast in a medial to lateral fashion At the level of the retromammary bursa. This was done sharply and with the use of cautery. Perforating vessels were addressed with hemoclips .The specimen was marked with a short stitch superior and long stitch lateral. It was passed from the table. The wound was then checked again for hemostasis and irrigated with warm water. The water was allowed to sit in the wound for approximately 90 seconds. It was then aspirated free and rinsed once again. The wound was checked carefully for hemostasis 1 more time. A 19 Tajik Ed drain was placed in the inframammary pocket medially and inferiorly and wound up laterally to end in the superior flap. It was sewn into place with a nylon suture. The incision was then closed in 2 layers with Vicryl suture followed by in sorb clips and then dressed with Dermabond. All sponge, needle, and instrument counts were correct at the conclusion of the case. The patient was allowed awaken from anesthesia without difficulty and taken to the postanesthesia care unit in good condition.
[2019-11-29] MEDS ORDERED: ACETAMINOPHEN 325 MG TABLET PO PRN (14:04)
[2019-11-29] MEDS ORDERED: IBUPROFEN 600 MG TABLET PO PRN (14:04)
[2019-11-29] MEDS ORDERED: oxyCODONE 5 MG TABLET PO PRN (14:04)
[2019-11-29] MEDS ORDERED: oxyCODONE 5 MG TABLET ONE (15:06)
[2019-11-29 15:34] VITALS: BP 145/85
--- NOTE | 2019-11-29 16:31 | ANESTHESIA POST OP EVALUATION ---
Anesthesia Post Eval - Post Anesthesia Eval Vitals: Last Vital Signs Temp 36.5 C 11/29/19 15:34 Pulse 79 11/29/19 15:34 Resp 16 11/29/19 15:34 BP 145/85 H 11/29/19 15:34 Pulse Ox 98 11/29/19 15:34 CV Function Including HR & BP: positive: Stable Pain Control: positive: Satisfactory Nausea & Vomiting: positive: Negative Mental Status: positive: Baseline Respiratory Status: Airway Patent Hydration Status: Satisfactory Anesthesia Complications: positive: None
== END 2019-11-29 07:48 | disposition home or self-care (01) ==
LOC: SDS 07:47
PROVIDERS: ATTEND Surgery
PROC: 0HTT0ZZ Resection of Right Breast, Open Approach (ICD-10-PCS; 2019-11-29)
PROC: 07B50ZX Excision of Right Axillary Lymphatic, Open Approach, Diagnostic (ICD-10-PCS; principal; 2019-11-29 11:45)
DX: C50.911 Malignant neoplasm of unspecified site of right female breast (principal); Z17.0 Estrogen receptor positive status [ER+]; I10 Essential (primary) hypertension; J45.909 Unspecified asthma, uncomplicated
CPT/HCPCS: 19303; 38525; 78195; A9270; J0690; J7120

== ENCOUNTER 2019-12-14 09:20 | Outpatient (CLI) | payer MEDICARE ==
[2019-12-14] MEDS ORDERED: IOVERSOL 320 100 ML VIAL IVP ONE ×2 (09:47→13:45)
--- NOTE | 2019-12-14 11:59 | CT Report ---
PROCEDURE: CHEST W INDICATIONS: ABNORMAL FINDING OF LUNG FIELD CONTRAST: IV CONTRAST: Optiray 320 ml: 100 PO CONTRAST: *NO PO CONTRAST TECHNIQUE: After the administration of intravenous contrast, 5 mm thick sections acquired from the pulmonary api so to the posterior costophrenic angles. 7 mm thick coronal MIP reformats were acquired. For radia tion dose reduction, the following was used: automated exposure control, adjustment of mA and/or kV according to patient size. COMPARISON: CT chest 09/20/2019, 07/08/2019 FINDINGS: Image quality: Excellent. Lungs and pleura: No acute air space opacities. No pleural effusions or pneumothorax. Central and peripheral airways are patent and normal in caliber. The previously identified 13 mm left upper lobe nodule on series 4 image 102 is unchanged. Medial lef t lower lobe nodule on series 4 image 190 measuring 5 mm is stable. Mild thickening along the right m inor fissure as well as areas of linear scarring within the lung bases are stable. Mild dependent justin nges are present. Scattered areas of fibrotic change are noted. Mediastinum: Heart size is mildly prominent. No pericardial effusion. No mediastinal or hilar adeno fernanda by size criteria. Thoracic aorta and central pulmonary arteries are normal in size. Esophagus is normal in caliber. No hiatal hernia. Bones and chest wall: No suspicious bony lesions. No vertebral body compression fractures. No axil erik or supraclavicular adenopathy by size criteria. Thyroid gland is unremarkable. Abdomen: Visualized upper abdominal solid organs appear normal. Upper abdominal bowel loops are nor mal in caliber. IMPRESSION: 1. Stable 13 mm left upper and 5 mm left lower lobe nodules compared to 09/20/2019. Upper lobe nodule stable compared to 07/08/2019. It is noted on the 09/20/2019 exam, the right lower lobe nodule head dem onstrating interval increase in size. Continued short interval imaging follow-up in 3 months is recom mended to document continued stability. Reviewed by: Ivelisse Mena MD on 12/14/2019 11:58 AM PDT Approved by: Ivelisse Mena MD on 12/14/2019 11:58 AM PDT Station ID: [id number]
== END 2019-12-14 09:21 | disposition home or self-care (01) ==
LOC: DI 09:20
PROVIDERS: ATTEND Internal Medicine
DX: R91.8 Other nonspecific abnormal finding of lung field (principal)
CPT/HCPCS: 71260; Q9967

== ENCOUNTER 2020-01-12 13:43 | Outpatient (CLI) | payer MEDICARE | END 2020-01-12 13:44 | disposition home or self-care (01) | LOC: LAB 13:43 | PROVIDERS: ATTEND Nurse Practitioner | DX: Z01.812 Encounter for preprocedural laboratory examination (principal); Z20.828 Contact with and (suspected) exposure to other viral communicable diseases; C50.919 Malignant neoplasm of unspecified site of unspecified female breast ==

== ENCOUNTER 2020-01-12 14:01 | Outpatient (CLI) | payer MEDICARE ==
--- NOTE | 2020-01-12 15:48 | DEXA Report ---
PROCEDURE: Dexa Spine and/or Hip INDICATIONS: POST MENOPAUSAL TECHNIQUE: Dual energy x-ray absorptiometry (DXA) was performed on a [email or web address] System. Regions measur ed are the AP Spine, femoral neck, and if needed forearm. COMPARISON: 07/17/2017. FINDINGS: Lumbar Spine: Bone Mineral Density 1.104 g/cm/cm,T score -0.6, normal Left Hip: Bone Mineral Density 0.916 g/cm/cm,T score -0.7, normal Femoral Neck: Bone Mineral Density 0.837 g/cm/cm, T score -1.4, osteopenia (T score greater or equal to -1.0: NORMAL) (T score from -1.1 to -2.4: OSTEOPENIA) (T score less than or equal to -2.5 to: OSTEOPOROSIS) Impression: Osteopenia. Bone mineral density has increased 3.2% in the interval since prior exam. Patients with diagnosis of osteoporosis or osteopenia should have regular bone mineral density assess ment. For those eligible for Medicare, routine testing is allowed once every 2 years. Testing frequ ency can be increased for patients who have rapidly progressing disease or for those who are receivin g medical therapy to restore bone mass. Reviewed by: Shani Kiran MD, PhD on 01/12/2020 3:47 PM PST Approved by: Shani Kiran MD, PhD on 01/12/2020 3:47 PM PST Station ID: [id number]
== END 2020-01-12 14:02 | disposition home or self-care (01) ==
LOC: DI 14:01
PROVIDERS: ATTEND Internal Medicine
DX: M85.88 Other specified disorders of bone density and structure, other site (principal); Z78.0 Asymptomatic menopausal state
CPT/HCPCS: 77080

== ENCOUNTER 2020-01-14 12:49 | Day surgery (SDC) | payer MEDICARE ==
--- NOTE | 2020-01-14 12:25 | ANESTHESIA ---
Pre-Anesthesia VS, & Labs - Diagnosis Infiltrating ductal carcinoma breast - Procedure Portacath placement Height: 5 ft 1 in Weight (kg): 81.6 kg Body Mass Index: 34.0 BMI Classification: Obese - NPO >8 hours - Is Patient ?: No - Lab Results Lab results reviewed: Yes Home Medications and Allergies Cholecalciferol [Vitamin D3] 1,000 unit PO DAILY 08/13/17 Krill/[place]-3/Dha/Epa/Lipids [Krill Oil 350 mg Softgel] 1 cap PO DAILY 08/13/17 Metoprolol Succinate 25 mg PO DAILY 08/13/17 Multivitamin/Iron/Folic Acid [Centrum Adults Tablet] 1 tab PO DAILY 08/13/17 Niacin 500 mg PO DAILY 08/13/17 Red Yeast Rice 1,200 cap PO BID 08/13/17 Ubidecarenone [Co Q-10] 1 cap PO DAILY 08/13/17 Vit A/Vit C/Vit E/Zinc/Copper [Preservision Areds Softgel] 2 cap PO DAILY 08/13/17 Calcium Carbonate/Vitamin D3 [Calcium 500 mg-Vit D3 600 Unit] 1 each PO DAILY 11/19/19 Anastrozole 1 mg PO DAILY 01/05/20 Allergies/Adverse Reactions: Allergies Allergy/AdvReac Type Severity Reaction Status Date / Time amoxicillin Allergy Rash Verified 01/05/20 16:38 Evkyjdp-Naa-Iiq Reductase AdvReac history of Verified 01/05/20 16:38 Inhibitor hepatitis Anes History & Medical History - Anesthetic History Anesthesia Complications: reports: No previous complications Family history of Anesthesia Complications: Denies Family history of Malignant Hyperthermia: Denies - Medical History Cardiovascular: reports: Hypertension, High cholesterol Pulmonary: reports: Asthma Gastrointestinal: reports: Chronic diarrhea, Hepatitis, Other Urinary: reports: Incontinence Neuro: reports: None Musculoskeletal: reports: Osteoarthritis Endocrine/Autoimmune: reports: None Blood Disorders: reports: None Skin: reports: None Smoking Status: Never smoker - Surgical History General: Cholecystectomy Eyes Ears Nose Throat (EENT): Other Gynecologic: Mastectomy Orthopedic: Knee replacement, Rotator cuff repair Exam General: Alert, Oriented x3, Cooperative, No acute distress Dental: WNL Mouth Openin Fingerbreadth Neck Mobility: Normal Mallampati classification: II Respiratory: Lungs clear, Normal breath sounds, No respiratory distress, No accessory muscle use Cardiovascular: Regular rate, Normal S1, Normal S2, No murmurs Plan Anesthesia Type: General (back up), MAC Consent for Procedure(s) Verified and Reviewed: Yes Code Status: Attempt Resuscitation ASA classification: 2-Mild systemic disease Is this case an emergency?: No
[2020-01-14] MEDS ORDERED: LACTATED RINGERS 1,000 ML IV ONE ×2 (12:53→14:54)
[2020-01-14] MEDS ORDERED: BUPIVACAINE 0.5%-EPI 1:200000 PF 30 ML VIAL ONE (13:12)
[2020-01-14] MEDS ORDERED: LIDOCAINE 1% 50 ML MDV ONE (13:12)
[2020-01-14] MEDS ORDERED: BUPIVACAINE 0.25% PF 30 ML VIAL ONE (13:20)
[2020-01-14] MEDS ORDERED: MORPHINE 2 MG/ML CARPUJECT IVP PRN (13:28)
[2020-01-14] MEDS ORDERED: ePHEDrine 50 MG/ML VIAL IVP PRN (13:28)
[2020-01-14] MEDS ORDERED: fentaNYL 100 MCG/2 ML VIAL IVP PRN (13:28)
[2020-01-14] MEDS ORDERED: METOCLOPRAMIDE 10 MG/2 ML VIAL IVP PRN (13:28)
[2020-01-14] MEDS ORDERED: HYDROmorphone 0.5 MG/0.5 ML SYRINGE IVP PRN (13:28)
[2020-01-14] MEDS ORDERED: ATROPINE ABBOJECT 1 MG/10 ML SYRINGE IVP PRN (13:28)
[2020-01-14] MEDS ORDERED: NALOXONE 0.4 MG/ML VIAL IVP PRN (13:28)
[2020-01-14] MEDS ORDERED: ONDANSETRON 4 MG/2 ML VIAL IVP PRN (13:28)
[2020-01-14] MEDS ORDERED: CLINDAMYCIN 600 MG/50 ML 50 ML IV ONE (13:32)
[2020-01-14] MEDS ORDERED: LIDOCAINE-MPF 2% 5 ML VIAL IM ONE (13:42)
[2020-01-14] MEDS ORDERED: KETAMINE 500 MG/10 ML VIAL IVP ONE (13:42)
[2020-01-14] MEDS ORDERED: GLYCOPYRROLATE 1 MG/5 ML VIAL IVP ONE (13:42)
[2020-01-14] MEDS ORDERED: PROPOFOL 200 MG/20 ML VIAL IVP ONE (13:42)
[2020-01-14] MEDS ORDERED: MIDAZOLAM 2 MG/2 ML VIAL IVP ONE (13:42)
[2020-01-14] MEDS ORDERED: BUPIVACAINE 0.5%-EPI 1:200000 PF 30 ML VIAL SUBQ ONE ×2 (13:57→14:27)
[2020-01-14] MEDS ORDERED: LIDOCAINE 1% 50 ML MDV SUBQ ONE ×2 (13:58→14:28)
[2020-01-14] MEDS ORDERED: LACTATED RINGERS 1,000 ML IV SCH (14:00)
[2020-01-14] MEDS ORDERED: oxyCODONE 5 MG TABLET PO PRN (14:54)
--- NOTE | 2020-01-14 14:59 | OPERATIVE REPORT ---
Operative Report - General Procedure Date: 01/14/20 Planned Procedure: left subclavian power port Pre-Op Diagnosis: history breast cancer Procedure Performed: left subclavian powerport Post Op Diagnosis: same - Procedure Note Primary Surgeon: davis regalado Anesthesia Technique: Local, MAC Estimated Blood Loss (mL): 2 Findings: good position and flow Complications: none
--- NOTE | 2020-01-14 15:01 | ANESTHESIA POST OP EVALUATION ---
Anesthesia Post Eval - Post Anesthesia Eval Vitals: Last Vital Signs Temp 36.5 C 01/14/20 14:41 Pulse 90 01/14/20 14:41 Resp 14 01/14/20 14:41 BP 164/94 H 01/14/20 14:41 Pulse Ox 100 01/14/20 14:41 CV Function Including HR & BP: positive: Stable Pain Control: positive: Satisfactory Nausea & Vomiting: positive: Negative Mental Status: positive: Baseline Respiratory Status: Airway Patent Hydration Status: Satisfactory Anesthesia Complications: positive: None
[2020-01-14 15:07] VITALS: BP 172/85
--- NOTE | 2020-01-14 17:22 | XRAY Report ---
PROCEDURE: OR C-Arm Procedure INDICATIONS: port placement CONTRAST: CONTRAST: na FLUOROSCOPY TIME: FLUORO TIME: 2.4 and NUMBER IMAGES: 1 COMPARISON: None FINDINGS: Left chest wall port was placed. Fluoroscopic spot film demonstrates tip of port catheter the distal SVC. IMPRESSION: Tip of the catheter lies within the distal SVC. Reviewed by: Shani Kiran MD, PhD on 01/14/2020 5:20 PM PST Approved by: Shani Kiran MD, PhD on 01/14/2020 5:20 PM PST Station ID: [id number]
== END 2020-01-14 12:50 | disposition home or self-care (01) ==
LOC: SDS 12:49
PROVIDERS: ATTEND Surgery
DX: C50.911 Malignant neoplasm of unspecified site of right female breast (principal); Z17.0 Estrogen receptor positive status [ER+]; R91.8 Other nonspecific abnormal finding of lung field; I10 Essential (primary) hypertension; E78.00 Pure hypercholesterolemia, unspecified; Z90.11 Acquired absence of right breast and nipple
CPT/HCPCS: 36561; C1788; J7120

== ENCOUNTER 2020-03-15 13:57 | Outpatient (CLI) | payer MEDICARE ==
[2020-03-15 14:47] LABS: CREATININE 0.6 mg/dL (0.4-1.0)
[2020-03-15] MEDS ORDERED: IOVERSOL 320 100 ML VIAL IVP ONE (16:07)
--- NOTE | 2020-03-15 20:58 | CT Report ---
PROCEDURE: CHEST W INDICATIONS: ABN CT, BREAST CA CONTRAST: IV CONTRAST: Optiray 320 ml: 100 PO CONTRAST: *NO PO CONTRAST TECHNIQUE: After the administration of intravenous contrast, 5 mm thick sections acquired from the pulmonary api so to the posterior costophrenic angles. 7 mm thick coronal MIP reformats were acquired. For radia tion dose reduction, the following was used: automated exposure control, adjustment of mA and/or kV according to patient size. COMPARISON: 12/14/2019, 09/20/2019, 07/08/2019. FINDINGS: Image quality: Excellent. Lungs and pleura: No acute air space opacities. No pleural effusions or pneumothorax. Central and peripheral airways are patent and normal in caliber. Redemonstration of 13 mm medial left upper lobe pulmonary nodule (image 97, series 4). Stable 5 mm po steromedial left lower lobe pulmonary nodule (image 180, series 4). No new pulmonary nodules or mass lesions. No septal thickening or nodularity. Stable appearance of mild peripheral fibrotic changes of the bilateral lung bases as well as scarring of the right middle lobe and bilateral lung bases. Mediastinum: Heart size is normal. Atherosclerotic calcifications of the coronary arteries are prese nt. No pericardial effusion. No mediastinal or hilar adenopathy by size criteria. Thoracic aorta a nd central pulmonary arteries are normal in size. Esophagus is normal in caliber. Small hiatal herni a. Bones and chest wall: No suspicious bony lesions. No acute vertebral body compression fractures. N o axillary or supraclavicular adenopathy by size criteria. Thyroid gland again demonstrates coarse c alcification in the left thyroid lobe. Otherwise, the thyroid appears unremarkable. Left-sided tunnel ed port device is visualized with the distal tip terminating near the cavoatrial junction. There are postoperative changes of right mastectomy. Abdomen: Mild diffuse hepatic steatosis. Status post cholecystectomy. Stable subcentimeter central r ight hepatic lobe hypodensity (image 46, series 3). Stable 3.6 cm left adrenal myelolipoma. Remainder of the visualized upper abdominal structures appear unremarkable. IMPRESSION: 1. Stable 13 mm left upper lobe and stable 5 mm medial left lower lobe pulmonary nodules. Recommend c ontinued imaging surveillance with follow-up CT in 6-12 months to document continued stability. 2. Stable left adrenal myelolipoma. 3. Status post right mastectomy. Other chronic findings as above. Reviewed by: Bonilla Serra MD on 03/15/2020 8:57 PM PST Approved by: Bonilla Serra MD on 03/15/2020 8:57 PM PST Station ID: [id number]
== END 2020-03-15 13:58 | disposition home or self-care (01) ==
LOC: DI 13:57
PROVIDERS: ATTEND Internal Medicine
DX: C50.911 Malignant neoplasm of unspecified site of right female breast (principal); R91.8 Other nonspecific abnormal finding of lung field; D17.5 Benign lipomatous neoplasm of intra-abdominal organs
CPT/HCPCS: 36415; 71260; 82565; Q9967

== ENCOUNTER 2020-03-15 14:09 | Outpatient (CLI) | payer MEDICARE ==
--- OUTSIDE RECORDS SUMMARY | 2020-03-22 00:47 | EXTERNAL MEDICAL SUMMARY RPT | Continuity of Care Document ---
:1945 Demographics Phone Unavailable Preferred Language Albanian Marital Status Unknown Taoist Affiliation Unknown Race Unknown Ethnic Group Unknown Author Organization [place] Address [address] [phone] Phone Care Team Providers Name Role Phone EVANS Unavailable Unavailable Apurva Unavailable Unavailable MEDICAL ESTHETICIAN Unavailable Unavailable EWING Unavailable Unavailable Problems date description facility 2019-09-22 13:20 BENIGN LIPOMATOUS NEOPLASM OF [facility] OTHER SITES 2019-09-22 13:20 POLYNEUROPATHY, UNSPECIFIED 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 NEOPLASM OF DIGESTIVE ORGANS 2019-09-22 13:20 FAMILY HISTORY OF MALIGNANT [facility] NEOPLASM OF BREAST 2019-09-22 13:20 FAMILY HISTORY OF MALIGNANT [facility] NEOPLASM OF ORGANS OR SYSTEMS 2019-11-29 07:47 MALIGNANT NEOPLASM OF UNSP SITE [facility] OF RIGHT FEMALE BREAST 2019-11-29 07:47 ESSENTIAL (PRIMARY) [facility] HYPERTENSION 2019-11-29 07:47 UNSPECIFIED ASTHMA, [facility] UNCOMPLICATED 2019-11-29 07:47 ESTROGEN RECEPTOR POSITIVE [facility] STATUS [ER+] 2019-12-08 14:20 MALIGNANT NEOPLASM OF UNSP SITE [facility] OF RIGHT FEMALE BREAST 2019-12-08 14:20 BENIGN LIPOMATOUS NEOPLASM OF [facility] OTHER SITES 2019-12-08 14:20 OTHER NONSPECIFIC ABNORMAL [facility] FINDING OF LUNG FIELD 2019-12-08 14:20 ESTROGEN RECEPTOR POSITIVE [facility] STATUS [ER+] 2019-12-08 14:20 FAMILY HISTORY OF MALIGNANT [facility] NEOPLASM OF DIGESTIVE ORGANS 2019-12-08 14:20 FAMILY HISTORY OF MALIGNANT [facility] NEOPLASM OF BREAST 2019-12-08 14:20 FAMILY HISTORY OF MALIGNANT 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 NEOPLASM OF DIGESTIVE ORGANS 2020-01-05 16:20 FAMILY HISTORY OF MALIGNANT [facility] NEOPLASM OF BREAST 2020-01-05 16:20 FAMILY HISTORY OF MALIGNANT [facility] NEOPLASM OF ORGANS OR SYSTEMS 2020-01-05 16:20 ACQUIRED ABSENCE OF RIGHT [facility] BREAST AND NIPPLE 2020-01-12 11:25 MALIGNANT NEOPLASM OF UNSP SITE [facility] OF UNSPECIFIED FEMALE BREAST 2020-01-12 13:43 MALIGNANT NEOPLASM OF UNSP SITE [facility] OF UNSPECIFIED FEMALE BREAST 2020-01-14 12:49 MALIGNANT NEOPLASM OF UNSP SITE [facility] OF RIGHT FEMALE BREAST 2020-01-14 12:49 PURE HYPERCHOLESTEROLEMIA, [facility] UNSPECIFIED 2020-01-14 12:49 ESSENTIAL (PRIMARY) [facility] HYPERTENSION 2020-01-14 12:49 OTHER NONSPECIFIC ABNORMAL [facility] FINDING OF LUNG FIELD 2020-01-14 12:49 ESTROGEN RECEPTOR POSITIVE [facility] STATUS [ER+] 2020-01-14 12:49 ACQUIRED ABSENCE OF RIGHT [facility] BREAST AND NIPPLE 2020-01-18 11:40 MALIGNANT NEOPLASM OF UNSP SITE [facility] OF RIGHT FEMALE BREAST 2020-01-18 11:40 BENIGN LIPOMATOUS NEOPLASM OF [facility] OTHER SITES 2020-01-18 11:40 OTHER NONSPECIFIC ABNORMAL [facility] FINDING OF LUNG FIELD 2020-01-18 11:40 ESTROGEN RECEPTOR POSITIVE [facility] STATUS [ER+] 2020-01-18 11:40 PENITENTIARY (CURRENT) USE OF [facility] AROMATASE INHIBITORS 2020-01-18 11:40 FAMILY HISTORY OF MALIGNANT [facility] NEOPLASM OF DIGESTIVE ORGANS 2020-01-18 11:40 FAMILY HISTORY OF MALIGNANT [facility] NEOPLASM OF BREAST 2020-01-18 11:40 FAMILY HISTORY OF MALIGNANT [facility] NEOPLASM OF ORGANS OR SYSTEMS 2020-01-18 11:40 ACQUIRED ABSENCE OF RIGHT [facility] BREAST AND NIPPLE 2020-01-19 00:00:00 Health-related behavior [facility] 2020-01-19 00:00:[address] [facility] 2020-01-19 00:00:00 Exercise [facility] 2020-01-19 00:00:00 Never smoker [facility] [place] [facility] 2020-01-19 00:00:00 Alcohol use [facility] 2020-01-19 00:00:00 Tobacco smoking status NHIS [facility] [place] 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 NEOPLASM OF DIGESTIVE ORGANS 2020-01-19 13:45 FAMILY HISTORY OF MALIGNANT [facility] NEOPLASM OF BREAST 2020-01-19 13:45 FAMILY HISTORY OF MALIGNANT [facility] NEOPLASM OF ORGANS OR SYSTEMS 2020-01-19 13:45 ACQUIRED ABSENCE OF RIGHT [facility] BREAST AND NIPPLE 2020-01-20 15:00 MALIGNANT NEOPLASM OF UNSP SITE [facility] OF RIGHT FEMALE BREAST 2020-01-20 15:00 BENIGN LIPOMATOUS NEOPLASM OF [facility] OTHER SITES 2020-01-20 15:00 ESSENTIAL (PRIMARY) [facility] HYPERTENSION 2020-01-20 15:00 OTHER NONSPECIFIC ABNORMAL [facility] FINDING OF LUNG FIELD 2020-01-20 15:00 ESTROGEN RECEPTOR POSITIVE [facility] STATUS [ER+] 2020-01-20 15:00 ENCOUNTER FOR ANTINEOPLASTIC [facility] CHEMOTHERAPY 2020-01-20 15:00 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 NEOPLASM OF DIGESTIVE ORGANS 2020-01-20 15:00 FAMILY HISTORY OF MALIGNANT [facility] NEOPLASM OF BREAST 2020-01-20 15:00 FAMILY HISTORY OF MALIGNANT [facility] NEOPLASM OF ORGANS OR SYSTEMS 2020-01-20 15:00 ACQUIRED ABSENCE OF RIGHT [facility] BREAST AND NIPPLE 2020-01-20 15:00 PRESENCE OF OTHER VASCULAR [facility] IMPLANTS AND GRAFTS 2020-02-09 12:28 MALIGNANT NEOPLASM OF UNSP SITE [facility] OF RIGHT FEMALE BREAST 2020-02-09 12:28 BENIGN LIPOMATOUS NEOPLASM OF [facility] OTHER SITES 2020-02-09 12:28 ESSENTIAL (PRIMARY) [facility] HYPERTENSION 2020-02-09 12:28 OTHER NONSPECIFIC ABNORMAL [facility] FINDING OF LUNG FIELD 2020-02-09 12:28 ESTROGEN RECEPTOR POSITIVE [facility] STATUS [ER+] 2020-02-09 12:28 ENCOUNTER FOR ANTINEOPLASTIC [facility] CHEMOTHERAPY 2020-02-09 12:28 PENITENTIARY (CURRENT) USE OF [facility] AROMATASE INHIBITORS 2020-02-09 12:28 OTHER PENITENTIARY (CURRENT) DRUG [facility] THERAPY 2020-02-09 12:28 FAMILY HISTORY OF MALIGNANT [facility] NEOPLASM OF DIGESTIVE ORGANS 2020-02-09 12:28 FAMILY HISTORY OF MALIGNANT [facility] NEOPLASM OF BREAST 2020-02-09 12:28 FAMILY HISTORY OF MALIGNANT [facility] NEOPLASM OF ORGANS OR SYSTEMS 2020-02-09 12:28 ACQUIRED ABSENCE OF RIGHT [facility] BREAST AND NIPPLE 2020-02-09 12:28 PRESENCE OF OTHER VASCULAR [facility] IMPLANTS AND GRAFTS 2020-02-09 14:20 BENIGN LIPOMATOUS NEOPLASM OF [facility] OTHER SITES 2020-02-09 14:20 ESTROGEN RECEPTOR POSITIVE [facility] STATUS [ER+] 2020-02-09 14:20 ENCOUNTER FOR ANTINEOPLASTIC [facility] CHEMOTHERAPY 2020-02-09 14:20 OTHER PENITENTIARY (CURRENT) DRUG [facility] THERAPY 2020-02-09 14:20 FAMILY HISTORY OF MALIGNANT [facility] NEOPLASM OF DIGESTIVE ORGANS 2020-02-09 14:20 FAMILY HISTORY OF MALIGNANT 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 [facility] AROMATASE INHIBITORS 2020-02-09 14:20 FAMILY HISTORY OF [facility]IGNANT [facility] NEOPLASM OF BREAST 2020-02-09 14:20 ACQUIRED ABSENCE OF RIGHT [facility] BREAST AND NIPPLE 2020-02-10 14:45 HERPESVIRAL INFECTION, [facility] UNSPECIFIED 2020-02-10 14:45 MALIGNANT NEOPLASM OF UNSP SITE [facility] OF RIGHT FEMALE BREAST 2020-02-10 14:45 BENIGN LIPOMATOUS NEOPLASM OF [facility] OTHER SITES 2020-02-10 14:45 ESSENTIAL (PRIMARY) [facility] HYPERTENSION 2020-02-10 14:45 DRUG INDUCED CONSTIPATION [facility] 2020-02-10 14:45 OTH DISRD OF BONE DENSITY AND [facility] STRUCTURE, UNSPECIFIED SITE 2020-02-10 14:45 COUGH [facility] 2020-02-10 14:45 OTHER FATIGUE [facility] 2020-02-10 14:45 OTHER NONSPECIFIC ABNORMAL [facility] FINDING OF LUNG FIELD 2020-02-10 14:45 ADVERSE EFFECT OF [facility] ANTINEOPLASTIC AND IMMUNOSUP DRUGS, INIT 2020-02-10 14:45 [facility] DRUG/MEDS/BIOL SUBST, INIT 2020-02-10 14:45 ESTROGEN RECEPTOR POSITIVE [facility] STATUS [ER+] 2020-02-10 14:45 ENCOUNTER FOR ANTINEOPLASTIC [facility] CHEMOTHERAPY 2020-02-10 14:45 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 OF [facility] AROMATASE INHIBITORS 2020-02-10 14:45 OTHER SECONDARY EDUCATION PROFESSOR (CURRENT) DRUG [facility] THERAPY 2020-02-10 14:45 FAMILY HISTORY OF MALIGNANT [facility] NEOPLASM OF DIGESTIVE ORGANS 2020-02-10 14:45 FAMILY HISTORY OF MALIGNANT [facility] NEOPLASM OF BREAST 2020-02-10 14:45 FAMILY HISTORY OF MALIGNANT [facility] NEOPLASM OF ORGANS OR SYSTEMS 2020-02-10 14:45 ACQUIRED ABSENCE OF RIGHT [facility] BREAST AND NIPPLE 2020-02-10 14:45 PRESENCE OF OTHER VASCULAR [facility] IMPLANTS AND GRAFTS 2020-02-25 00:00:00 Local infection due to central [facility] venous catheter [place] [facility] 2020-02-25 00:00:00 Local infection due to central [facility] venous catheter, initial [place] [facility] encounter 2020-02-25 00:00:00 Health-related behavior [facility] [place] [facility] 2020-02-25 00:00:[address] Tobacco use and exposure [facility] [place] [facility] 2020-02-25 00:00:[address] [facility] [place] [facility] 2020-02-25 00:00:00 [facility] [place] [facility] 2020-02-25 00:00:00 Infection associated with [facility] catheter [place] [facility] 2020-02-25 00:00:00 [facility] [place] [facility] 2020-02-25 00:00:00 Tobacco smoking status NHIS [facility] [place] [facility] 2020-02-25 00:00:00 Total [facility] [place] [facility] 2020-03-01 12:30 HERPESVIRAL INFECTION, [facility] UNSPECIFIED 2020-03-01 12:30 MALIGNANT NEOPLASM OF UNSP SITE [facility] OF RIGHT FEMALE BREAST 2020-03-01 12:30 BENIGN LIPOMATOUS NEOPLASM OF [facility] OTHER SITES 2020-03-01 12:30 ESSENTIAL (PRIMARY) [facility] HYPERTENSION 2020-03-01 12:30 DRUG INDUCED CONSTIPATION [facility] 2020-03-01 12:30 OTH DISRD OF BONE DENSITY AND [facility] STRUCTURE, UNSPECIFIED SITE 2020-03-01 12:30 COUGH [facility] 2020-03-01 12:30 OTHER FATIGUE [facility] 2020-03-01 12:30 OTHER NONSPECIFIC ABNORMAL [facility] FINDING OF LUNG FIELD 2020-03-01 12:30 ADVERSE EFFECT OF [facility] ANTINEOPLASTIC AND IMMUNOSUP DRUGS, INIT 2020-03-01 12:30 ADVERSE EFFECT OF UNSP [facility] DRUG/MEDS/BIOL SUBST, INIT 2020-03-01 12:30 ESTROGEN RECEPTOR POSITIVE [facility] STATUS [ER+] 2020-03-01 12:30 ENCOUNTER FOR ANTINEOPLASTIC [facility] CHEMOTHERAPY 2020-03-01 12:30 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 NEOPLASM OF DIGESTIVE ORGANS 2020-03-01 12:30 FAMILY HISTORY OF MALIGNANT [facility] NEOPLASM OF BREAST 2020-03-01 12:30 FAMILY HISTORY OF MALIGNANT [facility] NEOPLASM OF ORGANS OR SYSTEMS 2020-03-01 12:30 ACQUIRED ABSENCE OF RIGHT [facility] BREAST AND NIPPLE 2020-03-01 12:30 PRESENCE OF OTHER VASCULAR [facility] IMPLANTS AND GRAFTS 2020-03-02 11:45 HERPESVIRAL INFECTION, [facility] UNSPECIFIED 2020-03-02 11:45 MALIGNANT NEOPLASM OF UNSP SITE [facility] OF RIGHT FEMALE BREAST 2020-03-02 11:45 BENIGN LIPOMATOUS NEOPLASM OF [facility] OTHER SITES 2020-03-02 11:45 ESSENTIAL (PRIMARY) [facility] HYPERTENSION 2020-03-02 11:45 DRUG INDUCED CONSTIPATION [facility] 2020-03-02 11:45 OTH DISRD OF BONE DENSITY AND [facility] STRUCTURE, UNSPECIFIED SITE 2020-03-02 11:45 COUGH [facility] 2020-03-02 11:45 OTHER FATIGUE [facility] 2020-03-02 11:45 OTHER NONSPECIFIC ABNORMAL [facility] FINDING OF LUNG FIELD 2020-03-02 11:45 ADVERSE EFFECT OF [facility] ANTINEOPLASTIC AND IMMUNOSUP DRUGS, INIT 2020-03-02 11:45 ADVERSE EFFECT OF UNSP [facility] DRUG/MEDS/BIOL SUBST, INIT 2020-03-02 11:45 ESTROGEN RECEPTOR POSITIVE [facility] STATUS [ER+] 2020-03-02 11:45 ENCOUNTER FOR ANTINEOPLASTIC [facility] CHEMOTHERAPY 2020-03-02 11:45 PENITENTIARY (CURRENT) USE OF [facility] AROMATASE INHIBITORS 2020-03-02 11:45 OTHER 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 NEOPLASM OF DIGESTIVE ORGANS 2020-03-02 11:45 FAMILY HISTORY OF MALIGNANT [facility] NEOPLASM OF BREAST 2020-03-02 11:45 FAMILY HISTORY OF MALIGNANT [facility] NEOPLASM OF ORGANS OR SYSTEMS 2020-03-02 11:45 ACQUIRED ABSENCE OF RIGHT [facility] BREAST AND NIPPLE 2020-03-02 11:45 PRESENCE OF OTHER VASCULAR [facility] IMPLANTS AND GRAFTS 2020-03-15 13:57 MALIGNANT NEOPLASM OF UNSP SITE [facility] OF RIGHT FEMALE BREAST 2020-03-15 13:57 OTHER NONSPECIFIC ABNORMAL [facility] FINDING OF LUNG FIELD 2020-03-15 14:00 MALIGNANT NEOPLASM OF UNSP SITE [facility] OF RIGHT FEMALE BREAST 2020-03-15 14:00 OTHER NONSPECIFIC ABNORMAL [facility] FINDING OF LUNG FIELD 2020-03-15 15:00 MALIGNANT NEOPLASM OF UNSP SITE [facility] OF RIGHT FEMALE BREAST 2020-03-15 15:00 OTHER NONSPECIFIC ABNORMAL [facility] FINDING OF LUNG FIELD 2020-03-22 14:20 HERPESVIRAL INFECTION, [facility] UNSPECIFIED 2020-03-22 14:20 MALIGNANT NEOPLASM OF UNSP SITE [facility] OF RIGHT FEMALE BREAST 2020-03-22 14:20 BENIGN LIPOMATOUS NEOPLASM OF [facility] OTHER SITES 2020-03-22 14:20 ESSENTIAL (PRIMARY) [facility] HYPERTENSION 2020-03-22 14:20 DRUG INDUCED CONSTIPATION [facility] 2020-03-22 14:20 OTH DISRD OF BONE DENSITY AND [facility] STRUCTURE, UNSPECIFIED SITE 2020-03-22 14:20 COUGH [facility] 2020-03-22 14:20 OTHER FATIGUE [facility] 2020-03-22 14:20 OTHER NONSPECIFIC ABNORMAL [facility] FINDING OF LUNG FIELD 2020-03-22 14:20 ADVERSE EFFECT OF [facility] ANTINEOPLASTIC AND IMMUNOSUP DRUGS, INIT 2020-03-22 14:20 ADVERSE EFFECT OF UNSP [facility] DRUG/MEDS/BIOL SUBST, INIT 2020-03-22 14:20 ESTROGEN RECEPTOR POSITIVE [facility] STATUS [ER+] 2020-03-22 14:20 ENCOUNTER FOR ANTINEOPLASTIC [facility] CHEMOTHERAPY 2020-03-22 14:20 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 NEOPLASM OF DIGESTIVE ORGANS 2020-03-22 14:20 FAMILY HISTORY OF MALIGNANT [facility] NEOPLASM OF BREAST 2020-03-22 14:20 FAMILY HISTORY OF MALIGNANT [facility] NEOPLASM OF ORGANS OR SYSTEMS 2020-03-22 14:20 ACQUIRED ABSENCE OF RIGHT [facility] BREAST AND NIPPLE 2020-03-22 14:20 PRESENCE OF OTHER VASCULAR [facility] IMPLANTS AND GRAFTS Allergies date description facility NO KNOWN ENVIRONMENTAL ALLERGIES [facility] NO ALLERGY INFORMATION AVAILABLE [facility] NO KNOWN ALLERGIES [facility] CODEINE [facility] CEPHALEXIN [facility] Woumacw-Roj-Wiq Reductase Inhibitor [facility] [place] [facility] AMOXICILLIN [facility] ASPIRIN [facility] BEE VENOM [facility] BENZALKONIUM CHLORIDE [facility] BUPROPION HCL [facility] BUPROPION [facility] CEFTRIAXONE [facility] CHLORHEXIDINE [facility] CIPROFLOXACIN [facility] CLAVULANIC ACID [facility] CODEINE [facility] ERYTHROMYCIN [facility] ESCITALOPRAM OXALATE [facility] ESCITALOPRAM [facility] FENTANYL [facility] FUROSEMIDE [facility] GABAPENTIN [facility] HYDROCODONE [facility] INSULIN DETEMIR [facility] MESALAMINE [facility] METOPROLOL [facility] MIDAZOLAM HCL [facility] MIRTAZAPINE [facility] MORPHINE [facility] MOXIFLOXACIN [facility] NITROFURANTOIN [facility] POLOXAMER [facility] SULFAMETHOXAZOLE W/TRIMETHOPRIM [facility] (CO-TRIMOXAZOLE) SULFAMETHOXAZOLE-TRIMETHOPRIM [facility] TRAZODONE [facility] WASP VENOM PROTEIN [facility] CHLORHEXIDINE GLUCONATE [facility] LORAZEPAM [facility] NEOMYCIN-BACITRACIN ZN-POLYMYX [facility] NO KNOWN ALLERGIES [facility] ACYCLOVIR AND RELATED [facility] NO KNOWN ENVIRONMENTAL ALLERGIES [facility] PENICILLINS [facility] QUINOLONES [facility] CIPROFLOXACIN [facility] IODINE [facility] LISINOPRIL [facility] SULFA (SULFONAMIDE ANTIBIOTICS) [facility] SULFACETAMIDE SODIUM [facility] NO KNOWN ALLERGIES [facility] SHELLFISH CONTAINING PRODUCTS [facility] FATMATA INHIBITORS [facility] PENICILLINS [facility] SULFA (SULFONAMIDE ANTIBIOTICS) [facility] IODINATED CONTRAST MEDIA [facility] NO KNOWN ALLERGIES [facility] EGG YOLK [facility] FOOD [facility] RED DYE [facility] MORPHINE [facility] CODEINE [facility] COCONUT OIL [facility] KETOROLAC TROMETHAMINE [facility] PROMETHAZINE [facility] CLONIDINE [facility] SERTRALINE [facility] SEVELAMER [facility] IODINE [facility] LATEX [facility] ARIPIPRAZOLE [facility] ADHESIVE TAPE-SILICONES [facility] [place] adhesive tape [facility] Compazine [facility] Milk Allergy [facility] ADHESIVE \T\ [facility]APE [facility] ASPIRIN [facility] BEE VENOM [facility] BENAZEPRIL [facility] CEFUROXIME AXETIL [facility] CHLORTHALIDONE [facility] CODEINE SULFATE [facility] CODEINE [facility] FLUOXETINE [facility] HYDROCHLOROTHIAZIDE [facility] HYDROCODONE [facility] ISOSORBIDE MONONITRATE [facility] LAMOTRIGINE [facility] LIDOCAINE HCL [facility] MORPHINE [facility] NICOTINE [facility] QUETIAPINE [facility] SUMATRIPTAN [facility] TICAGRELOR [facility] TOPIRAMATE [facility] TRAMADOL [facility] HYDROCODONE-ACETAMINOPHEN [facility] NO KNOWN ALLERGIES idbeSt. [facility] FATMATA INHIBITORS [facility] NO KNOWN ENVIRONMENTAL ALLERGIES [facility] PENICILLINS [facility] SULFA ANTIBIOTICS [facility]LOZIN [facility] METFORMIN [facility] NO KNOWN ALLERGIES [facility] SHELLFISH DERIVED [facility] No Known Medication Allergies [facility] NO ALLERGY INFORMATION AVAILABLE [facility] NO KNOWN ALLERG[facility] I[facility]PROFEN [facility] PEANUT [facility] EGG [facility] MONTELUKAST [facility] MILK [facility] FLUTICASONE PROPION-SALMETEROL [facility] OXYCODONE-ACETAMINOPHEN [facility] Medications date description facility 2020-02-25 00:00:[address] [facility] [place] 2020-[facility] 2020-02-25 [facility] [place] 2020-02-25 [facility]00[facility] [place] 2020-02-25 00:00[facility]00 [facility] 2020-02-25 00:00:00 SULFAMETHOXAZOLE-TRIMETHOPRIM [facility] [place] [facility] 2020-02-25 00:00:00 ANASTROZOLE [facility] [place] [facility] 2020-02-25 00:00:00 SULFAMETHOXAZOLE-TRIMETHOPRIM [facility] Results Social History date description facility 2020-01-19 00:00:00 Never smoker [facility] [place] [facility] date description facility 2020-02-25 00:00:00 Never smoker [facility] [place] Social History date description facility 2020-01-19 00:00:00 Never smoker [facility] date description facility 2020-02-25 00:00:00 Never smoker [facility] date description facility [phone]
== END 2020-03-15 14:10 | disposition home or self-care (01) ==
LOC: LAB 14:09
PROVIDERS: ATTEND Internal Medicine
DX: C50.911 Malignant neoplasm of unspecified site of right female breast (principal); R91.8 Other nonspecific abnormal finding of lung field

== ENCOUNTER 2020-05-22 16:43 | Outpatient (CLI) | payer MEDICARE | END 2020-05-22 16:44 | disposition home or self-care (01) | LOC: COV 16:43 | PROVIDERS: ATTEND Ophthalmology | DX: Z01.812 Encounter for preprocedural laboratory examination (principal); H25.11 Age-related nuclear cataract, right eye; Z20.822 Contact with and (suspected) exposure to COVID-19 ==

== ENCOUNTER 2020-05-25 09:57 | Day surgery (SDC) | payer MEDICARE ==
[~2020-05-25 09:57] MED LIST changes: -GADOBUTROL 10 MMOL/10 ML VIAL ONE; +KETOROLAC 0.45% OPHTH DROPS ONE; +PHENYLEPHRINE 2.5% OPHTH 2 ML DROPS ONE; +PROPARACAINE 0.5% OPHTH DROPS 15 ML ONE
[2020-05-25] MEDS ORDERED: LACTATED RINGERS 500 ML IV ONE (10:16)
[2020-05-25] MEDS ORDERED: CYCLOPENTOLATE 2% OPHTH DROPS 2 ML RIGHTEYE ONE (10:22)
--- NOTE | 2020-05-25 10:47 | ANESTHESIA ---
Pre-Anesthesia VS, & Labs - Diagnosis R nuclear sclerotic cataract - Procedure R extraction cataract w IOL Vital Signs: Temp Pulse Resp BP Pulse Ox 36.4 C L 103 H 17 165/74 H 94 05/25/20 10:09 05/25/20 10:09 05/25/20 10:09 05/25/20 10:09 05/25/20 10:09 Height: 5 ft 1 in Weight (kg): 81.8 kg Body Mass Index: 34.0 BMI Classification: Obese - Is Patient ?: No Home Medications and Allergies Home Medications: Ambulatory Orders Vit A/Vit C/Vit E/Zinc/Copper [Preservision Areds Softgel] 2 each PO DAILY 05/24/20 Cholecalciferol [Vitamin D3] 2,000 unit PO DAILY 08/13/17 Krill/Mccarr-3/Dha/Epa/Lipids [Krill Oil 350 mg Softgel] 1 cap PO DAILY 08/13/17 Metoprolol Succinate 25 mg PO DAILY 08/13/17 Multivitamin/Iron/Folic Acid [Centrum Adults Tablet] 1 tab PO DAILY 08/13/17 Niacin 500 mg PO DAILY 08/13/17 Red Yeast Rice 1,200 cap PO BID 08/13/17 Ubidecarenone [Co Q-10] 1 cap PO DAILY 08/13/17 Vit A/Vit C/Vit E/Zinc/Copper [Preservision Areds Softgel] 2 cap PO DAILY 08/13/17 Calcium Carbonate/Vitamin D3 [Calcium 500 mg-Vit D3 600 Unit] 1 each PO DAILY 11/19/19 Anastrozole 1 mg PO DAILY 01/05/20 Latanoprost 0.005% Ophth Drops [Xalatan Ophth Drops] 1 drops OPTH QPM 03/22/20 Ferrous Sulfate [Slow Fe] 65 mg PO DAILY 04/12/20 Vit A/Vit C/Vit E/Zinc/Copper [Preservision Areds Softgel] 2 each PO DAILY 05/24/20 Allergies/Adverse Reactions: Allergies Allergy/AdvReac Type Severity Reaction Status Date / Time amoxicillin Allergy Rash Verified 05/25/20 10:17 [id number]-[id number]-Mbb Reductase AdvReac history of Verified 05/25/20 10:17 Inhibitor hepatitis Anes History & Medical History - Anesthetic History Anesthesia Complications: reports: No previous complications Family history of Anesthesia Complications: Denies Family history of Malignant Hyperthermia: Denies - Medical History Cardiovascular: reports: Hypertension, High cholesterol Pulmonary: reports: Asthma Gastrointestinal: reports: GERD, Hepatitis Urinary: reports: Incontinence Neuro: reports: None Musculoskeletal: reports: Osteoarthritis Endocrine/Autoimmune: reports: None Blood Disorders: reports: None Skin: reports: None Smoking Status: Never smoker - Surgical History General: reports: Cholecystectomy, Colonoscopy Eyes Ears Nose Throat (EENT): reports: Tonsil/Adenoidectomy Gynecologic: reports: Tubal ligation Orthopedic: reports: Knee replacement Exam General: Alert, Oriented x3, Cooperative Dental: WNL Mouth Openin Fingerbreadth Mallampati classification: II Thyromental Distance: 4-6 cm Respiratory: Lungs clear Cardiovascular: Regular rate Neurological: Normal speech Mental/Cognitive Status: Alert/Oriented X3, Normal for patient Cognitive Status: Within normal limits Plan Anesthesia Type: MAC Consent for Procedure(s) Verified and Reviewed: Yes Code Status: Attempt Resuscitation ASA classification: 3-Severe systemic disease Is this case an emergency?: No
[2020-05-25] MEDS ORDERED: MIDAZOLAM 2 MG/2 ML VIAL ONE (10:59)
[2020-05-25] MEDS ORDERED: BRIMONIDINE 0.2% OPHTH DROPS 5 ML ONE (11:01)
[2020-05-25] MEDS ORDERED: TRIAMCIN/MOXIFLOX OPHTHALMIC 0.6 ML VIAL IO ONE ×2 (11:01→11:11)
[2020-05-25] MEDS ORDERED: TIMOLOL 0.5% OPHTH DROPS ONE (11:01)
[2020-05-25] MEDS ORDERED: VANCOMYCIN OPHTHALMI 8MG/0.8ML 8 MG/0.8 ML SYRINGE IO ONE ×2 (11:01→11:11)
[2020-05-25] MEDS ORDERED: EPINEPHrine 1 MG/ML AMP IR ONE (11:10)
[2020-05-25] MEDS ORDERED: CHONDR SULF/HYALURONATE SYRINGE IO ONE (11:10)
[2020-05-25] MEDS ORDERED: BRIMONIDINE 0.2% OPHTH DROPS 5 ML OPTH ONE (11:10)
[2020-05-25] MEDS ORDERED: TIMOLOL 0.5% OPHTH DROPS OPTH ONE (11:11)
[2020-05-25] MEDS ORDERED: BSS/LIDOCAINE/EPINEPHRINE 1 ML SYRINGE IO ONE (11:11)
[2020-05-25] MEDS ORDERED: PROPARACAINE 0.5% OPHTH DROPS 15 ML EACHEYE ONE (11:11)
[2020-05-25] MEDS ORDERED: LACTATED RINGERS 1,000 ML IV ONE (11:23)
[2020-05-25 11:30] VITALS: BP 126/50
--- NOTE | 2020-05-25 12:43 | OPERATIVE REPORT ---
DATE OF SERVICE: 05/25/2020 Physician: Dany Lee MD PREOPERATIVE DIAGNOSIS: Visually significant cataract, right eye. This was her first cataract surge ry. POSTOPERATIVE DIAGNOSIS: Visually significant cataract, right eye. This was her first cataract surg molly. PROCEDURE: Phacoemulsification with posterior chamber intraocular lens implant, right eye. SURGEON: Dany Lee MD ANESTHESIA: Monitored anesthesia care. COMPLICATIONS: None. OPERATIVE INDICATIONS: This is a 74-year-old woman with progressive vision loss in the right eye due to 3+ nuclear sclerotic cataract. Best corrected visual acuity was 20/20 with glare to 20/250 in th e right eye. Indications for surgery were overall decrease in vision and difficulty with glare or br ight lights in any situation. She was consented at length concerning risks and benefits of cataract surgery, after which she expressed a desire to proceed with surgery. OPERATIVE PROCEDURE: The patient was taken into OR #3 and placed under monitored anesthesia care. A surgical timeout was conducted, confirming correct patient, correct procedure, and correct surgical site. She was given topical anesthesia, and prepped and draped in the usual sterile fashion. The ey e was entered at the 12 and 9 o'clock positions. Intracameral Shugarcaine was injected into the ante rior chamber, followed by Viscoat. A continuous-tear curvilinear capsulorrhexis was performed. The nucleus was hydrodissected and phacoemulsified. The cortex was evacuated using automated infusion an d aspiration. Provisc was injected in the capsular bag, and an 18.5 diopter intraocular lens inserte d in the bag. Infusion and aspiration were used to evacuate the viscoelastic materials. The eye was inflated to physiologic pressure using balanced salt solution and found to be watertight. Approxima tely 0.25 mL of a mixture of triamcinolone and moxifloxacin was injected transsclerally into the vitr eous in the inferotemporal quadrant. An additional 0.55 mL of a mixture of triamcinolone, moxifloxac in, and vancomycin was injected subconjunctivally in the superior quadrant for infection and inflamma tion prophylaxis. Wound integrity was checked with Weck-Maame sponges. The patient was taken from the operating room in good condition and given postoperative instructions. TD: 05/25/2020 12:11
--- NOTE | 2020-05-25 17:14 | ANESTHESIA POST OP EVALUATION ---
Anesthesia Post Eval - Post Anesthesia Eval Vitals: Last Vital Signs Temp 36.6 C 05/25/20 11:29 Pulse 90 05/25/20 11:29 Resp 17 05/25/20 11:29 BP 126/50 L 05/25/20 11:29 Pulse Ox 100 05/25/20 11:29 CV Function Including HR & BP: positive: Stable Pain Control: positive: Satisfactory Nausea & Vomiting: positive: Negative Mental Status: positive: Baseline Respiratory Status: Airway Patent Hydration Status: Satisfactory Anesthesia Complications: positive: None
== END 2020-05-25 09:58 | disposition home or self-care (01) ==
LOC: SDS 09:57
PROVIDERS: ATTEND Ophthalmology
DX: H25.11 Age-related nuclear cataract, right eye (principal); I10 Essential (primary) hypertension; J45.909 Unspecified asthma, uncomplicated; E66.9 Obesity, unspecified; Z68.34 Body mass index [BMI] 34.0-34.9, adult; Z85.3 Personal history of malignant neoplasm of breast; Z92.21 Personal history of antineoplastic chemotherapy
CPT/HCPCS: 66984; A9270; J3490; J7120

== ENCOUNTER 2021-02-07 14:39 | Outpatient (CLI) | payer MEDICARE ==
[2021-02-07] MEDS ORDERED: IOVERSOL 320 100 ML VIAL IVP ONE ×2 (16:24→16:28)
[2021-02-07] MEDS ORDERED: IOVERSOL 320 50 ML VIAL ONE (16:24)
[2021-02-07] MEDS ORDERED: IOVERSOL 320 50 ML VIAL PO ONE (16:29)
--- NOTE | 2021-02-07 17:00 | CT Report ---
PROCEDURE: Abdomen/Pelvis W INDICATIONS: RT BREAST CA CONTRAST: IV CONTRAST: Optiray 320 ml: 100 PO CONTRAST: Optiray 320 ml50 TECHNIQUE: After the administration of contrast, 5 mm thick sections acquired from the diaphragms to the symphy sis. 5 mm thick coronal and sagittal reformats were acquired. For radiation dose reduction, the fol lowing was used: automated exposure control, adjustment of mA and/or kV according to patient size. COMPARISON: 07/08/2019, 08/13/2018, and 09/11/2017. FINDINGS: Image quality: Excellent. ABDOMEN: Lung bases: Scarring/atelectasis scattered in bilateral lung bases are seen. Heart size is enlarged, no pericardial effusion. A right breast implant is noted and is grossly intact. Solid organs: Liver is normal in size. At least 4 tiny well circumscribed hypodensities are seen scat tered in right and left hepatic lobe measures up to 1 cm in size series 3 image 19 unchanged in size and appearance from prior studies. Spleen is normal in size and enhancement. Gallbladder is surgicall y absent. Biliary system is non dilated. Pancreas enhances normally. No right adrenal nodules. 3.2 x 3.7 cm heterogeneously enhancing left adrenal nodule is again seen previously measures 3.9 x 3.7 c m in size series 3 image 26. Internal fat density is again seen unchanged from prior study. Kidneys d emonstrate normal size and enhancement, without hydronephrosis. Peritoneum and bowel: Bowel loops demonstrate normal wall thickness and caliber. No free fluid or a ir. Appendix is visualized and is within normal limits. Extensive sigmoid diverticulosis is seen, no CT evidence of acute diverticulitis. Nodes and vessels: No retroperitoneal or mesenteric adenopathy by size criteria. Aorta and inferior vena cava are normal in size. Moderate atherosclerotic calcifications in the abdominal aorta and bi lateral iliac arteries are seen. Miscellaneous: No ventral hernias. PELVIS: Genitourinary: Bladder wall thickness is normal. Miscellaneous: No inguinal hernias or adenopathy. Uterus and bilateral adnexa show no gross abnorma lity. Bones: No suspicious bony lesions. No vertebral body compression fractures. IMPRESSION: 1. 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 No new adrenal lesion is seen. 2. Stable hypodensities scattered in the liver parenchyma likely represent benign hepatic cysts. 3. Extensive colonic diverticulosis without CT evidence of acute diverticulitis. No free fluid or ashu e air. Reviewed by: Rosas Meadows MD on 02/07/2021 4:59 PM PST Approved by: Rosas Meadows MD on 02/07/2021 4:59 PM PST Station ID: [id number]
--- NOTE | 2021-02-07 21:42 | CT Report ---
PROCEDURE: CHEST W INDICATIONS: RT BREAST CA CONTRAST: IV CONTRAST: Optiray 320 ml: 100 PO CONTRAST: Optiray 320 ml50 TECHNIQUE: After the administration of intravenous contrast, 1 mm axial images were acquired from the pulmonary apices through the posterior costophrenic angles. Axial 5 mm soft tissue kernel reconstructions were performed as well as 8 mm axial MIP and coronal and sagittal 5 mm reformations. For radiation dose reduction, the following was used: automated exposure control, adjustment of mA and/or kV according to patient size. COMPARISON: CT chest 03/15/2020 FINDINGS: Image quality: Excellent. Lungs and pleura: No acute air space opacities. No pleural effusions or pneumothorax. Central and peripheral airways are patent and normal in caliber. Previously identified medial left upper lobe no dule on series 3 image 105 measures 10 mm compared to 13 mm on prior exam. Left lower lobe posterior medial nodule on series 3 image 181 is unchanged measuring 5 mm. No new areas of pulmonary nodularity are identified. Mild emphysematous changes are present. Peripheral areas of scarring/fibrotic change are noted. Mediastinum: Heart size is normal. No pericardial effusion. No mediastinal or hilar adenopathy by size criteria. Thoracic aorta and central pulmonary arteries are normal in size. Esophagus is favian l in caliber. Moderate hiatal hernia. Bones and chest wall: No suspicious bony lesions. No vertebral body compression fractures. No axil erik or supraclavicular adenopathy by size criteria. The thyroid is normal in size and stable appear ance of calcification. Right breast implant is noted. Abdomen: Low-attenuation hepatic foci are unchanged. Cholecystectomy. Otherwise, visualized upper ab dominal solid organs appear normal. Upper abdominal bowel loops are normal in caliber. IMPRESSION: 1. Mild interval decrease in size of medial left upper lobe nodule. Stable 5 mm posterior medial left lower lobe nodule. No new areas of nodularity are identified. CLINICAL RECOMMENDATION STATEMENTS: In patients <35 years with an ITN detected on CT, MRI, or extrathyroidal ultrasound, the Committee re commends further evaluation with dedicated thyroid ultrasound if the nodule is "e1 cm and has no susp icious imaging features, and if the patient has normal life expectancy. In patients "e35 years with an ITN detected on CT, MRI, or extrathyroidal ultrasound, the Committee r ecommends further evaluation with dedicated thyroid ultrasound if the nodule is "e1.5 cm and has no s uspicious imaging features, and if the patient has normal life expectancy. (ACR, 2014) Reviewed by: Ivelisse Mena MD on 02/07/2021 9:41 PM PST Approved by: Ivelisse Mena MD on 02/07/2021 9:41 PM PST Station ID: [id number]
== END 2021-02-07 14:40 | disposition home or self-care (01) ==
LOC: DI 14:39
PROVIDERS: ATTEND Internal Medicine
DX: D17.79 Benign lipomatous neoplasm of other sites (principal)

== ENCOUNTER 2022-02-08 11:44 | Outpatient (CLI) | payer MEDICARE ==
--- NOTE | 2022-02-11 09:34 | Mammography Report ---
BILATERAL DIGITAL DIAGNOSTIC MAMMOGRAM 3D/2D: 02/08/2022 CLINICAL: Personal history of right breast cancer. Due for bilateral. Comparison is made to exams dated: 11/22/2019 breast MRI, 10/27/2019 mammogram, 10/05/2019 mammogram, mammogram - [facility], 07/26/2017 mammogram, and 02/13/2015 mammogram - [facility]. Both breasts are almost entirely fatty (category a/<25% glandular tissue). The patient is status post mastectomy and reconstruction of the right breast. There are surgical cli ps in the right breast in the axilla. There also are post operative changes in the right breast in t he posterior depth central to the nipple. The patient is status post reduction left breast. No significant masses, calcifications, or other findings are seen in either breast. IMPRESSION: BENIGN There is no mammographic evidence of malignancy. A 1 year screening mammogram is recommended. Findings and recommendations were conveyed to the patient at time of exam. This exam was interpreted at Station ID: [id number]. NOTE: For mammograms, a report in lay terms will be sent to the patient. Approximately 15% of breast malignancies will not be visualized mammographically. In the management of a palpable breast mass, a negative mammogram must not discourage biopsy of a clinically suspicious lesion. Electronically Signed By: Mirta armendariz/:02/08/2022 13:23:49 ACR BI-RADS Category 2: Benign Finding(s) 3342F PARENCHYMAL PATTERN: (F) - The breast(s) demonstrate(s) diffuse fatty replacement. BI-RADS CATEGORY: (2) - 2 RECOMMENDATION: (ANNUAL) - Recommend routine annual screening mammography. [id number] 1 year screening LATERALITY: (B)
== END 2022-02-08 11:45 | disposition home or self-care (01) ==
LOC: DI 11:44
PROVIDERS: ATTEND Internal Medicine
DX: Z08 Encounter for follow-up examination after completed treatment for malignant neoplasm (principal); Z85.3 Personal history of malignant neoplasm of breast

== ENCOUNTER 2023-07-09 07:55 | Outpatient (CLI) | payer MEDICARE ==
--- NOTE | 2023-07-09 09:39 | Mammography Report ---
UNILATERAL LEFT DIGITAL DIAGNOSTIC MAMMOGRAM 3D/2D WITH MAGNIFICATION: 07/09/2023 CLINICAL: Personal history of right breast cancer with mastectomy. Left breast exam only. Comparison is made to exams dated: 02/08/2022 mammogram, 10/27/2019 mammogram, 10/05/2019 mammogram, mammogram - [facility], 07/26/2017 mammogram, and 02/13/2015 mammogram - [facility]. There are scattered areas of fibroglandular density in the left breast (category b / 25%-50% glandula r tissue). There are benign vascular calcifications in the left breast. No significant masses, calcifications, or other findings are seen in the breast. There has been no significant interval change. IMPRESSION: BENIGN There is no mammographic evidence of malignancy. A 1 year screening mammogram is recommended. This exam was interpreted at Station ID: [id number]. NOTE: For mammograms, a report in lay terms will be sent to the patient. Approximately 15% of breast malignancies will not be visualized mammographically. In the management of a palpable breast mass, a negative mammogram must not discourage biopsy of a clinically suspicious lesion. Electronically Signed By: Lizzie castillo/vaibhav:07/09/2023 08:40:11 letter sent: No_Letter ACR BI-RADS Category 2: Benign Finding(s) 3342F PARENCHYMAL PATTERN: (A) - The breast(s) demonstrate(s) scattered fibroglandular densities. BI-RADS CATEGORY: (2) - 2 RECOMMENDATION: (ANNUAL) - Recommend routine annual screening mammography. [id number] 1 year screening LATERALITY: (B)
== END 2023-07-09 07:56 | disposition home or self-care (01) ==
LOC: DI 07:55
PROVIDERS: ATTEND Internal Medicine
DX: C50.911 Malignant neoplasm of unspecified site of right female breast (principal); R92.322 Mammographic fibroglandular density, left breast; Z90.11 Acquired absence of right breast and nipple